=== PATIENT | female | born 1990 | race Two or more races ===

== ENCOUNTER 2024-09-25 14:31 | Emergency (ER) | payer MEDICAID, SELFPAY ==
[2024-09-25 14:33] VITALS: BMI 42.0
[2024-09-25 14:41] VITALS: BP 117/78; PULSE 91; RESP 18; TEMP 36.7; O2SAT 97; BMI 45.3
--- NOTE | 2024-09-25 14:54 | PD.EDADULT ---
ED General RME/HPI General Chief complaint: General Adult/Misc Complain Stated complaint: RAIZA INGROIN NAILS Time Seen by Provider: 09/25/24 14:34 Arrival date/time: 09/25/24 14:31 34-year-old female reports with complaints of toe pain from bilateral ingrown toenails. Patient admits to having a history of diabetes insulin-dependent but also states that she has not been evaluated by podiatry ever. She denies any swelling redness bruising or discharge from the toes. She states that is difficult to wear shoes because of the pain Limitations: no limitations Related Data Home Medications ?Medication ?Instructions ?Recorded ?Confirmed insulin glargine 100 unit/mL (3 30 unit subcut BID 07/05/23 11/09/23 mL) subcutaneous pen (Basaglar KwikPen U-100 Insulin) metformin 500 mg tablet 1,000 mg PO BID 07/05/23 11/09/23 liraglutide 0.6 mg/0.1 mL (18 mg/3 1.8 mg subcut QDAY 10/09/23 11/09/23 mL) subcutaneous pen injector (Victoza 3-Home) Previous Rx's ?Medication ?Instructions ?Recorded blood sugar diagnostic (Blood #25 ea 10/12/23 Glucose Test strips) blood-glucose meter #1 ea 10/12/23 blood-glucose sensor (FreeStyle #1 10/12/23 Yamini 3 Sensor device) insulin lispro 100 unit/mL 1 sliding scale dose subcut 10/12/23 subcutaneous pen (Admelog [place] USEASDIRECTD DM2 #15 mL U-100 Insulin lispro) lancets (Accu-Chek Softclix #100 ea 10/12/23 Lancets) pen needle, diabetic 29 gauge x #100 ea 10/12/23 1/2 (Pen Needle) blood-glucose meter,continuous #1 11/09/23 (FreeStyle Yamini 3 [place]) blood-glucose sensor (FreeStyle #1 11/09/23 Yamini 3 Sensor device) insulin glargine 100 unit/mL (3 30 unit (0.3 mL) subcut BID #15 mL 11/09/23 mL) subcutaneous pen (Basaglar KwikPen U-100 Insulin) Allergies Allergy/AdvReac Type Severity Reaction Status Date / Time No Known Allergies Allergy Verified 09/25/24 14:34 Review of Systems Constitutional Constitutional: Denies chills and Denies fever(s) Musculoskeletal Musculoskeletal: Reports arthralgias, Denies joint swelling, Denies numbness and Denies tingling Integumentary/Breasts Skin/Breast: Denies skin swelling, Denies unusual bruising and Reports other (ingrown nails) Neurologic Neurologic: Denies numbness and Denies tingling Past Medical History Past Medical History NEUROLOGIC: Negative Neurological Disorders or Seizures CARDIAC: Negative Cardiac Disorders, Angina, Aneurysm or Congestive Heart Failure RESPIRATORY: Negative Chronic Obstructive Pulmonary Disease (COPD) or Asthma GASTROINTESTINAL: Positive Gastrointestinal Disorders and Obesity; Negative Hepatitis or Colorectal Cancer GENITOURINARY: Negative Genitourinary Disorders, Renal Disease or Prostate Cancer REPRODUCTIVE: Positive Previous Pregnancies; Negative Breast Cancer, Endometriosis, Pelvic Inflammatory Disease, Testicular Cancer or Uterine Prolapse MUSCULOSKELETAL: Negative Musculoskeletal Disorders or Bone Cancer ENDOCRINE: Positive Endocrine Disorders and Diabetes Mellitus Type 2; Negative Diabetes Mellitus Type 1 HEMATOLOGIC: Negative Blood Disorders or Sickle Cell Disease OTHER HISTORY: Positive Chicken Pox; Negative Hospitalization, Autoimmune Disease, Down Syndrome, Developmental Delay, Shingles, Falls, Blood Transfusions, Blood Transfusion Reaction, Anesthesia Reactions, Organ Transplant, Chemotherapy, Radiation Therapy, Hyperbaric Therapy, MRSA, VRSA, Vancomycin-Resistant Enterococci, Human Immunodeficiency Virus (HIV), Measles, Mumps, Rubella (Pakistani Measles), Pertussis, Clostridium Difficile, Cancer, Breast Cancer, Cervical Cancer, Colorectal Cancer, Lung Cancer, Ovarian Cancer, Prostate Cancer or Testicular Cancer Family History FAMILY HISTORY: Negative Family Psychiatric Problems, Family Respiratory Disorders, Family Cardiac Disorders, Family Gastrointestinal Problems, Family Cancer, Family Surgery or Family Anesthesia Reaction Surgical History SURGICAL: Positive Section; Negative Cardiac Surgery, Endocrine Surgery, Thyroidectomy, Ear Surgery, Abdominal Surgery, Nephrectomy, Joint Replacement, Neurologic Surgery, Mastectomy, Vasectomy or Organ Transplant Social History SMOKING STATUS: Never smoker SECOND HAND EXPOSURE: No SUBSTANCE USE: does not use ED Exam General Limitations: Present no limitations General appearance: Present alert and in no apparent distress Expanded Lower Extremity Exam Foot/toe exam: Present other (bilateral nails with mild over growth of nails bilateral great toe, no d/c redness, or swelling, noted, FROM, cap refill < 2 sec, remainder of foot unremarkable); Absent tenderness or swelling Neurological Exam Neurological exam: Present alert, oriented X3 and CN II-XII intact Psychiatric Psychiatric exam: Present normal affect and normal mood Skin Skin exam: Present warm, dry, intact and normal color Course Quality Measures none Vital Signs Vital signs: Vital Signs Temperature 98.0 F 09/25/24 14:41 Pulse Rate 91 09/25/24 14:41 Respiratory Rate 18 09/25/24 14:41 Blood Pressure 117/78 09/25/24 14:41 Pulse Oximetry (%) 97 09/25/24 14:41 Oxygen Delivery Method Room Air 09/25/24 14:41 MDM Patient data External records reviewed:: None Clinical information provided by:: patient Social determinants that could affect healthcare access:: none Patient has the following chronic illnesses:: DM How is presenting disease/condition affected by chronic disease/condition?: exacerbated by Evaluation data The following diagnostics were reviewed and interpreted by me:: other (specify) (none) Lab and/or radiology exams considered but not ordered:: none Interpretation Summary: n/a Medications Medications considered but not ordered:: none Medication administrations:: none Consultations Consultation(s) initiated? (list below): No Diagnosis Differential Diagnosis ED Complaint MDM: Bilateral toe contusion versus ingrown toenail Most likely diagnosis given after review of the tests above:: Bilateral ingrown toenails great toe Admission Indicated Admission indicated?: not indicated Explain why admission is indicated or not indicated:: Mild condition Admission Request Was there a request for admission?: No Disposition Plan Disposition Plan: Discharge Discharge Attestation Discharge Attestation: The patient and all family members were given an opportunity to ask questions and understood the discharge instructions. Discharge instructions specifically effects, indications for sooner follow up or return to the emergency department, and the expected course of current diagnosis. Patient condition: Stable Medical Decision Making Differential Diagnosis Differential Diagnosis: Bilateral toe contusion versus ingrown toenail Discharge Plan Plan Patient Disposition: HOME (Self Care) Prescriptions/Referrals Prescriptions/Med Rec: No Action insulin glargine [Basaglar KwikPen U-100 Insulin] 100 unit/mL (3 mL) insulin pen 30 unit subcut BID Qty: 15 2RF (DME) FreeStyle Yamini 3 [place] Misc See Rx Instructions .Route Qty: 1 2RF Rx Instructions: As directed (DME) FreeStyle Yamini 3 Sensor Device See Rx Instructions .Route Qty: 1 0RF Rx Instructions: As directed insulin glargine [Basaglar KwikPen U-100 Insulin] 100 unit/mL (3 mL) insulin pen 30 unit SUBCUT BID Patient Comments: inject 30 units subcutaneously twice a day 30 DAYS metformin 500 mg tablet 1,000 mg PO BID Rx Instructions: pt states has only been taking once a day but is suppose to do it twice Victoza 3-Home 0.6 mg/0.1 mL (18 mg/3 mL) pen injector 1.8 mg SUBCUT QDAY Patient Comments: inject 0.6 milligram subcutaneously daily for 7 days then 1.2 milligram subcutaneously once daily insulin lispro [Admelog SoloStar U-100 Insulin] 100 unit/mL insulin pen 1 sliding scale dose subcut USEASDIRECTD Qty: 15 0RF (DME) blood-glucose meter Kit See Rx Instructions .Route Qty: 1 0RF Rx Instructions: As directed (DME) Blood Glucose Test Strip See Rx Instructions .Route Qty: 25 0RF Rx Instructions: As directed (DME) lancets [Accu-Chek Softclix Lancets] Misc See Rx Instructions .Route Qty: 100 0RF Rx Instructions: As directed (DME) FreeStyle Yamini 3 Sensor Device See Rx Instructions .Route Qty: 1 0RF Rx Instructions: As directed (DME) pen needle, diabetic [Pen Needle] 29 gauge x 1/2 needle See Rx Instructions .Route Qty: 100 0RF Rx Instructions: As directed Referrals: Billy Tsai DPM [Physician] - In 1 week Problem List Clinical Impression: Ingrown nail of great toe of left foot, Ingrown nail of great toe of right foot Patient/Caregiver Discharge Instructions Discharge Activity: activity as tolerated Education Materials: Understanding Ingrown Toenails, ED Ingrown Toenail Not ... Additional Instructions: You should follow with your primary care provider for referral to podiatry do not attempt to cut the ingrown nails yourself keep the areas clean and dry Print Language: Kinyarwanda Stand Alone Forms: Leslie Award Info., Patient Portal Info Letter
== END 2024-09-25 15:35 | disposition home or self-care (01) ==
PROVIDERS: Emergency Provider Emergency Medicine; PCP Family Medicine
DX: L60.0 Ingrowing nail (principal); E11.9 Type 2 diabetes mellitus without complications
CPT/HCPCS: 99281

== ENCOUNTER 2025-02-19 07:35 | Emergency (ER) | payer MEDICAID, SELFPAY ==
[2025-02-19 07:43] VITALS: BP 146/82; PULSE 83; RESP 18; TEMP 36.9; O2SAT 99; BMI 49.1
--- NOTE | 2025-02-19 07:48 | EDNOTE_ITS ---
<Statement entered by Alesia Moses MD - 02/19/25 17:34> As co-signing physician, I was present and available for consult prn. I concur with the plan and care as documented by the midlevel provider. Nausea/Vomit./Diarrhea-RME/HPI General Chief complaint: Nausea/Vomiting/Diarrhea Stated complaint: N/V, + PREG Time Seen by Provider: 02/19/25 07:38 Source: patient Arrival date/time: 02/19/25 07:35 35-year-old female with a history of type 2 diabetes presents to the emergency room with a chief complaint of nausea and vomiting x 3 days. Patient states she is currently and her last menstrual period was 3 months ago Mode of arrival: ambulatory Limitations: no limitations Related Data Home Medications ?Medication ?Instructions ?Recorded ?Confirmed insulin glargine 100 unit/mL (3 30 unit subcut BID 06/1711/09/23 mL) subcutaneous pen (Basaglar KwikPen U-100 Insulin) metformin 500 mg tablet 1,000 mg PO BID 07/05/23 liraglutide 0.6 mg/0.1 mL (18 mg/3 1.8 mg subcut QDAY 10/09/23 11/09/23 mL) subcutaneous pen injector (Victoza 3-Home) Previous Rx's ?Medication ?Instructions ?Recorded blood sugar diagnostic (Blood #25 ea 10/12/23 Glucose Test strips) blood-glucose meter #1 ea 10/12/23 blood-glucose sensor (FreeStyle #1 ea 10/12/23 Yamini 3 Sensor device) insulin lispro 100 unit/mL 1 sliding scale dose subcut 10/12/23 subcutaneous pen (Admelog SoloStar USEASDIRECTD DM2 #1 5 mL U-100 Insulin lispro) lancets (Accu-Chek Softclix #100 ea 10/12/23 Lancets) pen needle, diabetic 29 gauge x #100 10/12/23 1/2 (Pen Needle) blood-glucose sensor (FreeStyle #1 ea 11/09/23 Yamini 3 Sensor device) blood-glucose,school speech therapist,cont #1 ea 11/09/23 (FreeStyle Yamini 3 [place]) insulin glargine 100 unit/mL (3 30 unit (0.3 mL) subcu t BID #15 mL 11/09/23 mL) subcutaneous pen (Basaglar KwikPen U-100 Insulin) ondansetron 4 mg disintegrating 4 mg PO Q8H PRN nausea and 02/19/25 tablet vomiting #14 tabs Allergies Allergy/AdvReac Type Severity Reaction Status Date / Time No Known Allergies Allergy Verified 09/25/24 14:34 Review of Systems Review of Systems Systems Reviewed: All systems reviewed, normal except as documented Constitutional Constitutional: Reports system reviewed and no additional complaints, except as documented, Denies fatigue, Denies fever(s), Denies headache(s) and Denies weakness Eyes Eyes: Reports system reviewed and no additional complaints, except as documented, Denies blurry vision and Denies change in vision ENT Ears, Nose, Mouth, and Throat: Reports system reviewed and no additional complaints, except as documented, Denies otalgia, Denies headache(s), Denies nasal congestion, Denies throat swelling and Denies vertigo Cardiovascular Cardiovascular: Reports system reviewed and no additional complaints, except as documented, Denies chest pain, Denies dyspnea and Denies dyspnea on exertion Respiratory Respiratory: Reports system reviewed and no additional complaints, except as documented, Denies chest congestion, Denies cough, Denies dyspnea, Denies dyspnea on exertion and Denies wheezing Gastrointestinal Gastrointestinal: Reports system reviewed and no additional complaints, except as documented, Denies abdominal pain, Denies cramping, Reports nausea and Reports vomiting Genitourinary Genitourinary: Reports system reviewed and no additional complaints, except as documented Musculoskeletal Musculoskeletal: Reports system reviewed and no additional complaints, except as documented and Denies back pain Integumentary/Breasts Skin/Breast: Reports system reviewed and no additional complaints, except as documented and Denies wounds Neurologic Neurologic: Reports system reviewed and no additional complaints, except as documented, Denies confusion, Denies headache(s), Denies lack of coordination, Denies vertigo and Denies weakness Psychiatric Psychiatric: Reports system reviewed and no additional complaints, except as documented, Denies anxiety, Denies confusion, Denies depression, Denies paranoia, Denies suicidal ideation and Denies tactile hallucinations Endocrine Endocrine: Reports system reviewed and no additional complaints, except as documented and Denies fatigue Hematologic/Lymphatic Hematologic/Lymphatic: Reports system reviewed and no additional complaints, except as documented and Denies lymphadenopathy Allergic/Immunologic Allergic/Immunologic: Reports system reviewed and no additional complaints, except as documented, Denies throat swelling, Denies urticaria and Denies wheezing ED Exam General Limitations: Present no limitations General appearance: Present alert and in no apparent distress Head Head exam: Present atraumatic Eye Eye exam: Present normal appearance, PERRL and EOMI ENT ENT exam: Present normal exam, normal oropharynx and mucous membranes moist Neck Neck exam: Present normal inspection, full ROM and trachea midline Chest Chest inspection: Present normal inspection and symmetric chest wall rise Respiratory Respiratory exam: Present normal lung sounds bilaterally Cardiovascular Cardiovascular exam: Present regular rate, normal rhythm and normal heart sounds Abdominal Exam Abdominal exam: Present soft and normal bowel sounds; Absent distention, tenderness, guarding, rebound or rigidity Extremities Exam Extremities exam: Present normal inspection and full ROM Back Exam Back exam: Present normal inspection and full ROM Neurological Exam Neurological exam: Present alert, oriented X3 and CN II-XII intact Psychiatric Psychiatric exam: Present normal affect and normal mood Skin Skin exam: Present warm, dry, intact and normal color Course Quality Measures none Orders Category Date Time Status Ondansetron Odt [Zofran Odt] Med 02/19/25 07:46 Once 4 mg PO X1 ONE Vital Signs Vital signs: Vital Signs Temperature 98.5 F 02/19/25 07:43 Pulse Rate 83 02/19/25 07:43 Respiratory Rate 18 02/19/25 07:43 Blood Pressure 146/82 H 02/19/25 07:43 Pulse Oximetry (%) 99 02/19/25 07:43 Oxygen Delivery Method Room Air 02/19/25 07:43 Nausea/Vomiting/Diarrhea MDM Narrative MDM Narrative:: 35-year-old female with a history of type 2 diabetes presents to the emergency room with a chief complaint of nausea and vomiting x 3 days. Patient states she is currently and her last menstrual period was 3 months ago Patient is hemodynamically stable and in no apparent distress Physical examination shows a soft nontender abdomen. The patient denies any abdominal pain or pelvic pain. Patient denies any vaginal bleeding dysuria or any other symptoms besides nausea and vomiting. Patient has an appointment with her CORONER FORENSIC TECHNICIAN next week. Patient was discharged and educated to follow-up with primary care provider in the next 24 to 48 hours and return to the emergency room for any evidence of worsening signs or symptoms Patient data External records reviewed:: [facility] previous records Clinical information provided by:: patient Social determinants that could affect healthcare access:: none Patient has the following chronic illnesses:: Type 2 diabetes How is presenting disease/condition affected by chronic disease/condition?: exacerbated by Evaluation data The following diagnostics were reviewed and interpreted by me:: lab results and radiology exam(s) Lab and/or radiology exams considered but not ordered:: Labs and radiology exams considered in order Interpretation Summary: N/A Medications / Prescriptions Medications / Prescriptions considered but not ordered:: Medication given Medication administrations:: Medication Administration History Ondansetron HCl (Ondansetron Odt 4 Mg Tabrap) 4 mg PO X1 ONE; Protocol Stop: 02/19/25 07:47 Medication given Consultations Consultation(s) initiated? (list below): No Diagnosis Nausea Differential Diagnosis: gastroenteritis, dehydration and other (Nausea vomiting) Most likely diagnosis given after review of the tests above:: Nausea vomiting Admission Indicated Admission indicated?: not indicated Admission Request Was there a request for admission?: No Disposition Plan Disposition Plan: Discharge Discharge Attestation Discharge Attestation: The patient and all family members were given an opportunity to ask questions and understood the discharge instructions. Discharge instructions specifically effects, indications for sooner follow up or return to the emergency department, and the expected course of current diagnosis. Patient condition: Stable Discharge Plan Plan Patient Disposition: HOME (Self Care) Discharge Disposition comment: Stable Prescriptions/Referrals Prescriptions/Med Rec: New ondansetron 4 mg tablet,disintegrating 4 mg PO Q8H PRN (Reason: nausea and vomiting) Qty: 14 0RF No Action insulin glargine [Basaglar KwikPen U-100 Insulin] 100 unit/mL (3 mL) insulin pen 30 unit subcut BID Qty: 15 2RF (DME) FreeStyle Yamini 3 [place] Misc See Rx Instructions .Route Qty: 1 2RF Rx Instructions: As directed (DME) FreeStyle Yamini 3 Sensor Device See Rx Instructions .Route Qty: 1 0RF Rx Instructions: As directed insulin glargine [Basaglar KwikPen U-100 Insulin] 100 unit/mL (3 mL) insulin pen 30 unit SUBCUT BID Patient Comments: inject 30 units subcutaneously twice a day 30 DAYS metformin 500 mg tablet 1,000 mg PO BID Rx Instructions: pt states has only been taking once a day but is suppose to do it twice Victoza 3-Home 0.6 mg/0.1 mL (18 mg/3 mL) pen injector 1.8 mg SUBCUT QDAY Patient Comments: inject 0.6 milligram subcutaneously daily for 7 days then 1.2 milligram subcutaneously once daily insulin lispro [Admelog SoloStar U-100 Insulin] 100 unit/mL insulin pen 1 sliding scale dose subcut USEASDIRECTD Qty: 15 0RF (DME) blood-glucose meter Kit See Rx Instructions .Route Qty: 1 0RF Rx Instructions: As directed (DME) Blood Glucose Test Strip See Rx Instructions .Route Qty: 25 0RF Rx Instructions: As directed (DME) lancets [Accu-Chek Softclix Lancets] Misc See Rx Instructions .Route Qty: 100 0RF Rx Instructions: As directed (DME) FreeStyle Yamini 3 Sensor Device See Rx Instructions .Route Qty: 1 0RF Rx Instructions: As directed (DME) pen needle, diabetic [Pen Needle] 29 gauge x 1/2 needle See Rx Instructions .Route Qty: 100 0RF Rx Instructions: As directed Problem List Clinical Impression: Vomiting affecting Patient/Caregiver Discharge Instructions Education Materials: ED Vomiting (Adult) Additional Instructions: Please follow-up with your CORONER FORENSIC TECHNICIAN in the next 24 to 48 hours Medication was given to help you with your symptoms. Please pick it up and take it as indicated For any evidence of worsening signs or symptoms return to the emergency room immediately Print Language: Divehi Stand Alone Forms: Leslie Award Info., Patient Portal Info Letter PA/ASSISTANT INFANT TEACHER Supervising Physician PA/ASSISTANT INFANT TEACHER Supervising Physician: Dr. Kitchen
[2025-02-19] MEDS: ONDANSETRON ODT 4 MG TABRAP PO (07:56)
== END 2025-02-19 08:01 | disposition home or self-care (01) ==
PROVIDERS: Emergency Provider Emergency Medicine; PCP Family Medicine
DX: O21.9 Vomiting of pregnancy, unspecified (principal)
CPT/HCPCS: 99282; Q0162

== ENCOUNTER 2025-03-05 08:21 | Outpatient (AMB) | payer MEDICAID, SELFPAY ==
[2025-03-05 08:36] VITALS: BP 106/71; PULSE 74; RESP 17; TEMP 36.6; O2SAT 97; BMI 48.6
--- NOTE | 2025-03-05 08:36 | OBCLNT_ITS ---
Vital Signs 03/05/25 08:36 Height 1.6 m Height Method Stated Weight 124.738 kg Weight Measurement Method Standing Scale BMI 48.6 BP 106/71 Blood Pressure Source Automatic Cuff Blood Pressure Location Right Upper Arm Position Sitting Respiration 17 Pulse 74 Pulse Source Monitor Temp 97.9 F Temp Source Temporal Artery Scan Pulse Oximetry (%) 97 Oxygen Delivery Method Room Air Allergies/Home Meds Allergies & Medications Allergies No Known Allergies Allergy (Verified 03/05/25 08:37) Medication Reconciliation insulin glargine 100 unit/mL (3 mL) subcutaneous pen (Basaglar KwikPen U-100 Insulin) 30 unit subcut BID 07/05/23 [History Confirmed 03/05/25] metformin 500 mg tablet 1,000 mg PO BID 07/05/23 [History Confirmed 03/05/25] liraglutide 0.6 mg/0.1 mL (18 mg/3 mL) subcutaneous pen injector (Victoza 3-Home) 1.8 mg subcut QDAY 10/09/23 [History Confirmed 03/05/25] blood-glucose sensor (FreeStyle Yamini 3 Sensor device) #1 ea 10/12/23 [Rx Confirmed 03/05/25] insulin lispro 100 unit/mL subcutaneous pen (Admelog SoloStar U-100 Insulin lispro) 1 sliding scale dose subcut USEASDIRECTD DM2 #15 mL 10/12/23 [Rx Confirmed 03/05/25] pen needle, diabetic 29 gauge x 1/2 (Pen Needle) #100 ea 10/12/23 [Rx Confirmed 03/05/25] blood-glucose sensor (FreeStyle Yamini 3 Sensor device) #1 ea 11/09/23 [Rx Confirmed 03/05/25] blood-glucose,network project manager,cont (FreeStyle Yamini 3 [place]) #1 ea 11/09/23 [Rx Confirmed 03/05/25] insulin glargine 100 unit/mL (3 mL) subcutaneous pen (Basaglar KwikPen U-100 Insulin) 30 unit (0.3 mL) subcut BID #15 mL 11/09/23 [Rx Confirmed 03/05/25] blood sugar diagnostic (Blood Glucose Test strips) #100 ea 03/05/25 [Rx] blood-glucose meter #1 ea 03/05/25 [Rx] lancets 21 gauge #100 ea 03/05/25 [Rx] ondansetron 4 mg disintegrating tablet 4 mg PO Q6H PRN nausea and vomiting 30 days #120 tabs 03/22/25 [Rx] Intake Visit Data Collection New Patient or Established: Established Patient (seen at [facility] within 3 years) Reason for Visit:: OBI Seen by Clinical Staff ONLY (RN/MA): No Health Advisor Required: No Do You Feel Safe at Home: Yes Authorities Contacted: N/A PCP or OBGYN visit in last 3 months: Yes Date of Last PCP or OBGYN visit: 02/19/25 Hx Now: Yes Are you currently on any form of Control: No Pain Present Currently: No Pain scale:: 0 Smoking Status Smoking Status: Never smoker Questionnaires Covid-19 Vaccine Questionnaire Has patient been vacinated for Covid-19 Have you been vacinated for Covid-19: Yes PHQ-9 PHQ-2 Over the last 2 weeks, how often have you been bothered by any of the following problems? 1. Little interest or pleasure in doing things: not at all 2. Feeling down, depressed, or hopeless: not at all Total score: 0 PHQ-9 3. Trouble falling or staying asleep, or sleeping too much: Not at all 4. Feeling tired or having little energy: Not at all 5. Poor appetite or overeating: Not at all 6. Feeling bad about yourself - or that you are a failure or have let yourself or your family down: Not at all 7. Trouble concentrating on things, such as reading the newspaper or watching television: Not at all 8. Moving or speaking so slowly that other people could have noticed? - Or the opposite - being so fidgety or restless that you have been moving around a lot more than usual: not at all 9. Thoughts that you would be better off or of hurting yourself in some way: Not at all Total score: 0 If you checked off any problems, how difficult have these problems made it for you to do your work, take care of things at home, or get along with other people?: not difficult at all Source: Developed by Drs. Matthew Walker, Brielle Menezes, Kevan Gardner and colleagues, with an educational arturo from [email or web address]. Depression screen completed yes Social History Living Situation History Marital Status: Life Partner Lives With: Family Housing: Apartment Housing Other:: Pt is alert/oriented Tobacco History Smoking Status: Never smoker Second Hand Smoke Exposure: No Alcohol History Alcohol Intake: Never Alcohol Intake Frequency: A Few Times a Month Domestic Abuse History Do You Feel Safe at Home: Yes History of Present Illness HPI Narrative Laurie Corbett is a 35-year-old [id number] presenting for her initial visit. She has a history of 2 previous deliveries in 2013 and 2019, type 2 diabetes mellitus, and psoriasis. She reported a last menstrual period of October 12, 2024, but is unsure of the exact date. She is beginning to feel some movements. Her diabetes is currently under control, with her last A1c being around 8. She is taking 40 units of Humalog insulin for her diabetes management. However, she does not have a glucose meter at home for regular blood sugar monitoring. The patient's current is progressing without any reported complications or concerns. She has not mentioned any specific symptoms or discomfort related to her or pre-existing conditions. Medical History: - Type 2 diabetes mellitus - Psoriasis Surgical History: - delivery in 2019 - delivery in 2013 Obstetric History: - GPAL: G3 T2 L2 - First : delivery in 2013 - Second : delivery in 2019 Medications: - Insulin (Humalog) 40 units DIVISION SERGEANT: Past Medical History Past Medical History: No Hx Neurological Disorders, No Hx Breast Cancer, No Hx Cardiac Disorders, No Hx Cancer, No Hx Blood Disorders, Yes Hx Gastrointestinal Disorders, No Hx Renal Disease, No Hx Diabetes Mellitus Type 1 and Yes Hx Diabetes Mellitus Type 2 OB Initial Visit OB Flowsheet OB Flowsheet Initial Weight: Not Recorded Date -?-?-?-?-?-?-?-?-?-?-?-?- EGA Weight BP Alb Glu CTX Pres Fundal ht FHR Mov Dilation Station Effacement Hx Notes Visit Note 03/05/25 -?-?-?-?-?-?-?-?-?-?-?-?- 23w 2d 124.738 kg 106/71 absent unknown 24 - Schedule formal ultrasound - Order labs - Review ultrasound and lab results once available to determine further management - Continue Humalog 40 units - Provide glucose meter - Instruct patient to check blood sugar four times daily: fasting and 1 hour after each meal - Review blood sugar readings at next vi sit before making any insulin dosage adjustments Menstrual History Menstrual reliability: definite Flow: normal Menstrual regularity: regular Monthly: Yes Age at menarche: 15 On control pills at conception: No OB History : 3 Para: 2 # of Living Children: 2 Delivery History 1st : Child's name: CLIFFORD MCCARTY date: 12/25/13 sex: female Gestational age at delivery (weeks): 40 Delivery type: weight (lbs): 3175.147 g History of depression before or after : No 2nd : Child's name: CHANDLER MCCARTY date: 01/31/20 sex: male Gestational age at delivery (weeks): 36 Delivery type: weight (lbs): 4535.924 g History of depression before or after : No Infection History & Risk Evaluation History of STDs: HIV Patient or partner has history of Genital Herpes: Yes Varicella/chicken pox status: unknown Genetic Screening & History Genetic Screening/Teratology Counseling - Includes patient, baby's father, or anyone in either family with: 1. Patient's age 35 years or older as of estimated date of delivery: No 2. Thalassemia ([place], Japanese, Mediterranean, or Background); MCV less than 80: No 3. Neural Tube Defect (Meningomyelocele, Spina Bifida, or Anencephaly): No 4. Congenital Heart Defect: No 5. Down Syndrome: No 6. Diego-Sachs (Ashkenazi Roman Catholic, Cajun, [place]): No 7. Gabino Disease (Ashkenazi Roman Catholic): No 8. Familial Dysautonomia (Ashkenazi Roman Catholic): No 9. Sickle Cell Disease or Trait (): No 10. Hemophilia or other blood disorders: No 11. Muscular Dystrophy: No 12. Cystic Fibrosis: No 13. [place]'s Chorea: No 14. Mental Retardation/Autism: Yes 15. Other inherited genetic or chromosomal disorder: No 16. Maternal Metabolic Disorder (EG,TYPE 1 Diabetes, PKU): No 17. Patient or baby's father had a child with defects not listed above: No 18. Recurrent loss or a stillbirth: No 19. Medications (including supplements, vitamins, herbs or otc drugs)/illicit/ recreational drugs/alcohol since last menstrual period: No 20. Any other: No Infection History 1. Live with someone with TB or exposed to TB: No 2. Rash or viral illness since last menstrual period: No 3. Hepatitis B,C: No 4. History of STD: HIV Other (see comments) Source: [employer] Exam General Limitations: no limitations General Appearance: alert, in no apparent distress and comfortable Head Head exam: atraumatic and normocephalic Eye Eye exam: Present normal appearance, PERRL and EOMI Neck Neck exam: Present normal inspection and full ROM Chest Chest inspection: Present normal inspection and symmetric chest wall rise; Absent tenderness Resp Respiratory exam: Present normal lung sounds bilaterally; Absent respiratory distress Card Cardiovascular exam: Present regular rate and normal rhythm Abdominal Abdominal exam: Present soft and normal bowel sounds; Absent tenderness, guarding, rebound or rigidity Neuro Neurological exam: Present alert and oriented X3 Psych Psychiatric exam: Present normal affect Office Procedures OB Clinic LOC & Office Proc's Nursing/Assessment Patient Status: Established Patient OB Clinic Nursing Assessment: Medication Reconciliation, Update PMH in EMR and Vital Signs OB Clinic Coordination of Care: Complex Care and Chronic Disease 1-5, Consent,records obtained, informed consent, Education Simp Pt/Fam and Staff clarify orders Special Needs: Heart tones Established Patient Charge Established Patient Point Assignment: 115 Established Patient Point Charge: EP Level 3 (80-115) Assessment & Plan Diagnosis / Problem List (1) Morbid obesity with BMI of 45.0-49.9, adult: Status: Acute (2) Supervision of high risk , unspecified, first trimester: Status: Acute Plan Assessment: Patient reports last menstrual period on October 12, 2024, but is unsure of exact date. She is beginning to feel movements. Given her history of 2 previous deliveries, this is considered high- risk. Plan: - Performed bedside ultrasound, unable to determine EGA due to body habitus - Schedule formal ultrasound - Order labs - Review ultrasound and lab results once available to determine further management Type 2 Diabetes Mellitus Assessment: Patient's diabetes is currently under control with last HbA1c around 8%. She is on insulin therapy, taking 40 units of Humalog. Patient does not have a glucose meter for home monitoring. Plan: - Continue Humalog 40 units - Provide glucose meter - Instruct patient to check blood sugar four times daily: fasting and 1 hour after each meal - Review blood sugar readings at next visit before making any insulin dosage adjustments Psoriasis Assessment: Patient has a history of psoriasis. Plan: - Continue current management
== END 2025-03-05 09:06 | disposition home or self-care (01) ==
LOC: HODSOBC 08:21
PROVIDERS: PCP Family Medicine; Referring Provider Family Medicine; Supervising Provider Obstetrics & Gynecology; Visit Provider Obstetrics & Gynecology
DX: O09.892 Supervision of other high risk pregnancies, second trimester (principal); O99.212 Obesity complicating pregnancy, second trimester; E66.01 Morbid (severe) obesity due to excess calories; O24.112 Pre-existing type 2 diabetes mellitus, in pregnancy, second trimester; O34.219 Maternal care for unspecified type scar from previous cesarean delivery; Z3A.23 23 weeks gestation of pregnancy; L40.9 Psoriasis, unspecified; O09.292 Supervision of pregnancy with other poor reproductive or obstetric history, second trimester; O99.712 Diseases of the skin and subcutaneous tissue complicating pregnancy, second trimester; Z79.4 Long term (current) use of insulin; Z79.84 Long term (current) use of oral hypoglycemic drugs; Z79.85 Long-term (current) use of injectable non-insulin antidiabetic drugs
CPT/HCPCS: 99213; G0463

== ENCOUNTER → 2025-03-07 | Outpatient (CLI) | payer MEDICAID, SELFPAY ==
--- NOTE | 2025-03-07 13:37 | XR_ITS ---
Examination: Complete OB ultrasound, less than 14 weeks, transabdominal Date and time of exam: March 07, 2025 1345 hours INDICATIONS: Nausea beginning 2 weeks ago Technique: Obstetrical ultrasound images less than 14 weeks performed via transabdominal imaging Findings: A normal shaped single intrauterine gestation is present in the uterus. CRL 0.9 cm corresponds to 6 week 6 day gestational age Cardiac motion 144 BPM Ultrasonographic survey of visible and placental structures unremarkable. Amniotic fluid volume appears appropriate for this estimated gestational age. Ovaries obscured by bowel gas IMPRESSION: Viable intrauterine gestation 6 weeks 6 days.
== END | disposition home or self-care (01) ==
LOC: CDIM 13:26
PROVIDERS: Referring Provider Obstetrics & Gynecology; Visit Provider Obstetrics & Gynecology
DX: O36.80X0 Pregnancy with inconclusive fetal viability, not applicable or unspecified (principal); Z3A.01 Less than 8 weeks gestation of pregnancy
CPT/HCPCS: 76801

== ENCOUNTER 2025-03-24 16:56 | Emergency (ER) | payer MEDICAID, SELFPAY ==
[2025-03-24 16:57] VITALS: BMI 43.9
[2025-03-24 17:30] VITALS: BP 135/82; PULSE 90; RESP 16; TEMP 36.8; O2SAT 96
--- NOTE | 2025-03-24 17:59 | EDNOTE_ITS ---
Upper Respiratory Inf. RME/HPI General Chief Complaint: Flu Like Symptoms Stated Complaint: FLU LIKE SYMPTOMS Time Seen by Provider: 03/24/25 17:25 Arrival date/time: 03/24/25 16:56 This is a 35-year-old female that comes into the emergency room with complaints of sore throat, cough and runny nose for a few days now. Per patient her and her son have the same symptoms. Mother states that she is she does not know how far along she is but just had an ultrasound and was told that it was very early . Patient not complaining of any abdominal pain any vaginal discharge or it vaginal bleeding. Mother reports no past medical history. Related Data Home Medications ?Medication ?Instructions ?Recorded ?Confirmed insulin glargine 100 unit/mL (3 30 unit subcut BID 06/1703/05/25 mL) subcutaneous pen (Basaglar KwikPen U-100 Insulin) metformin 500 mg tablet 1,000 mg PO BID 07/05/2306/19 liraglutide 0.6 mg/0.1 mL (18 mg/3 1.8 mg subcut QDAY 10/09/23 03/05/25 mL) subcutaneous pen injector (Victoza 3-Home) Previous Rx's ?Medication ?Instructions ?Recorded blood-glucose sensor (FreeStyle #1 ea 10/12/23 Yamini 3 Sensor device) insulin lispro 100 unit/mL 1 sliding scale dose subcut 10/12/23 subcutaneous pen (Admelog [place] USEASDIRECTD DM2 #1 5 mL U-100 Insulin lispro) pen needle, diabetic 29 gauge x #100 ea 10/12/23 1/2 (Pen Needle) blood-glucose sensor (FreeStyle #1 ea 11/09/23 Yamini 3 Sensor device) blood-glucose,compliance review officer,cont #1 ea 11/09/23 (FreeStyle Yamini 3 [place]) insulin glargine 100 unit/mL (3 30 unit (0.3 mL) subcu t BID #15 mL 11/09/23 mL) subcutaneous pen (Basaglar KwikPen U-100 Insulin) blood sugar diagnostic (Blood #100 ea 03/05/25 Glucose Test strips) blood-glucose meter #1 ea 03/05/25 lancets 21 gauge #100 ea 03/05/25 ondansetron 4 mg disintegrating 4 mg PO Q6H PRN nausea and 03/22/25 tablet vomiting 30 days #120 tabs Allergies Allergy/AdvReac Type Severity Reaction Status Date / Time No Known Allergies Allergy Verified 03/05/25 08:37 Review of Systems Review of Systems Systems Reviewed: All systems reviewed, normal except as documented Past Medical History Past Medical History NEUROLOGIC: Negative Neurological Disorders or Seizures CARDIAC: Negative Cardiac Disorders, Angina, Aneurysm or Congestive Heart Failure RESPIRATORY: Negative Chronic Obstructive Pulmonary Disease (COPD) or Asthma GASTROINTESTINAL: Positive Gastrointestinal Disorders and Obesity; Negative Hepatitis or Colorectal Cancer GENITOURINARY: Negative Genitourinary Disorders, Renal Disease or Prostate Canc er REPRODUCTIVE: Positive Previous Pregnancies; Negative Breast Cancer, Endometriosis, Pelvic Inflammatory Disease, Testicular Cancer or Uterine Prolapse MUSCULOSKELETAL: Negative Musculoskeletal Disorders or Bone Cancer ENDOCRINE: Positive Endocrine Disorders and Diabetes Mellitus Type 2; Negative Diabetes Mellitus Type 1 HEMATOLOGIC: Negative Blood Disorders or Sickle Cell Disease OTHER HISTORY: Positive Chicken Pox; Negative Hospitalization, Autoimmune Disease, Down Syndrome, Developmental Delay, Shingles, Falls, Blood Transfusions, Blood Transfusion Reaction, Anesthesia Reactions, Organ Transplant, Chemotherapy, Radiation Therapy, Hyperbaric Therapy, MRSA, VRSA, Vancomycin-Resistant Enterococci, Human Immunodeficiency Virus (HIV), Measles, Mumps, Rubella ([place]i Measles), Pertussis, Clostridium Difficile, Cancer, Breast Cancer, Cervical Cancer, Colorectal Cancer, Lung Cancer, Ovarian Cancer, Prostate Cancer or Testicular Cancer Family History FAMILY HISTORY: Negative Family Psychiatric Problems, Family Respiratory Disorders, Family Cardiac Disorders, Family Gastrointestinal Problems, Family Cancer, Family Surgery or Family Anesthesia Reaction Surgical History SURGICAL: Positive Section; Negative Cardiac Surgery, Endocrine Surgery, Thyroidectomy, Ear Surgery, Abdominal Surgery, Nephrectomy, Joint Replacement, Neurologic Surgery, Mastectomy, Vasectomy or Organ Transplant Social History SMOKING STATUS: Never smoker SECOND HAND EXPOSURE: No SUBSTANCE USE: does not use ED Exam Narrative Physical exam: VITAL SIGNS: Reviewed. GENERAL APPEARANCE: Alert and interactive, follows commands, no acute distress, HEAD AND FACE: Non-traumatic. ENT: PERRL, conjuctiva pink and clear, eyelid no trauma, Mucous membrane moist. NECK: Supple, nontender, no nuchal rigidity. CHEST: No tenderness, no crepitus, no paradoxical movement, no retractions. LUNGS: Clear, well ventilated, symmetric, no rales, no wheezing, no rhonchi, no stridor, good breath sounds bilaterally. HEART: Regular rate, regular rhythm, no murmur, no gallops. ABDOMEN: Soft, nondistended, no guarding, nontender, no rebound, no masses, NEUROLOGICAL: Gross motor function intact sensory function intact, Appropriate for age. MUSCULOSKELETAL: low back nontender, full range of motion. EXTREMITIES: No redness no swelling no skin breakdown on bilateral foot and leg. Distal neurovascular status intact bilateral foot SKIN: Color pink, dry, no rash, no lacerations, no abrasions, no contusions. Course Quality Measures none Orders Category Date Time Status Bedside COVID-19 Antigen Test NOW Care 03/24/25 17:46 Completed Bedside Influenza A&B Antigen Test NOW Care 03/24/25 17:46 Completed Acetaminophen Tab [Tylenol ES Tab] Med 03/24/25 17:46 Discontinued 1,000 mg PO X1 ONE Vital Signs Vital signs: Vital Signs Temperature 98.3 F 03/24/25 17:30 Pulse Rate 90 03/24/25 17:30 Respiratory Rate 16 03/24/25 17:30 Blood Pressure 135/82 H 03/24/25 17:30 Pulse Oximetry (%) 96 03/24/25 17:30 Oxygen Delivery Method Room Air 03/24/25 17:30 Upper Respiratory Infection MDM Narrative MDM Narrative:: COVID and influenza negative. Patient given Tylenol for pain. I spoke to patient at length. Told patient to make plenty of fluids rest is likely a viral illness. Patient told to follow-up with primary provider in 1 to 2 days. Come back to the emergency room if symptoms change or worsen. Dragon dictation: Although this document has been carefully reviewed, there may still be some phonetic and other typographical errors. These errors are purely grammatical due to imperfections in the software program and should not be construed in any way to compromise the substance of the patient's medical care during this visit. Patient data External records reviewed:: [facility] previous records Clinical information provided by:: patient Social determinants that could affect healthcare access:: none Patient has the following chronic illnesses:: none How is presenting disease/condition affected by chronic disease/condition?: no chronic disease Evaluation data The following diagnostics were reviewed and interpreted by me:: lab results Lab and/or radiology exams considered but not ordered:: none Interpretation Summary: see note Medications / Prescriptions Medications or Prescriptions considered but not ordered:: none Medication administrations:: Medication Administration History Discontinued Medications Acetaminophen (Acetaminophen 500 Mg Tablet) 1,000 mg PO X1 ONE Stop: 03/24/25 17:47 Last Admin: 03/24/25 18:09 Dose: 1,000 mg Documented By: SARAH see cassia Consultations Consultation(s) initiated? (list below): No Diagnosis Upper Respiratory Differential Diagnosis: upper respiratory infection, otitis media, sinusitis, viral infection and influenza Most likely diagnosis given after review of the tests above:: uri Admission Indicated Admission indicated?: not indicated Admission Request Was there a request for admission?: No Disposition Plan Disposition Plan: Discharge Discharge Attestation Discharge Attestation: The patient and all family members were given an opportunity to ask questions and understood the discharge instructions. Discharge instructions specifically effects, indications for sooner follow up or return to the emergency department, and the expected course of current diagnosis. Patient condition: Stable Discharge Plan Plan Patient Disposition: HOME (Self Care) Patient condition on transfer: Stable Prescriptions/Referrals Prescriptions/Med Rec: No Action insulin glargine [Basaglar KwikPen U-100 Insulin] 100 unit/mL (3 mL) insulin pen 30 unit subcut BID Qty: 15 2RF (DME) FreeStyle Yamini 3 [place] Misc See Rx Instructions .Route Qty: 1 2RF Rx Instructions: As directed (DME) FreeStyle Yamini 3 Sensor Device See Rx Instructions .Route Qty: 1 0RF Rx Instructions: As directed (DME) blood-glucose meter Kit See Rx Instructions .MEDSUPPLY Qty: 1 0RF Rx Instructions: As directed, 4 times a day (DME) Blood Glucose Test Strip See Rx Instructions .MEDSUPPLY Qty: 100 0RF Rx Instructions: As directed, 4 times a day (DME) lancets 21 gauge misc See Rx Instructions .MEDSUPPLY Qty: 100 0RF Rx Instructions: As directed, 4 times a day ondansetron 4 mg tablet,disintegrating 4 mg PO Q6H PRN (Reason: nausea and vomiting) 30 Days Qty: 120 0RF insulin glargine [Basaglar KwikPen U-100 Insulin] 100 unit/mL (3 mL) insulin pen 30 unit SUBCUT BID Patient Comments: inject 30 units subcutaneously twice a day 30 DAYS metformin 500 mg tablet 1,000 mg PO BID Rx Instructions: pt states has only been taking once a day but is suppose to do it twice Victoza 3-Home 0.6 mg/0.1 mL (18 mg/3 mL) pen injector 1.8 mg SUBCUT QDAY Patient Comments: inject 0.6 milligram subcutaneously daily for 7 days then 1.2 milligram subcutaneously once daily insulin lispro [Admelog SoloStar U-100 Insulin] 100 unit/mL insulin pen 1 sliding scale dose subcut USEASDIRECTD Qty: 15 0RF (DME) FreeStyle Yamini 3 Sensor Device See Rx Instructions .Route Qty: 1 0RF Rx Instructions: As directed (DME) pen needle, diabetic [Pen Needle] 29 gauge x 1/2 needle See Rx Instructions .Route Qty: 100 0RF Rx Instructions: As directed Referrals: No Primary/Family,Physician [Primary Care Provider] - In 1 week Problem List Clinical Impression: Upper respiratory infection, viral Patient/Caregiver Discharge Instructions Discharge Activity: activity as tolerated Education Materials: ED URI, Viral, No Abx (Adult) Additional Instructions: Follow up with primary provider in 1-2 days. Come back to ED if symptoms change or worsen Print Language: Serbian Stand Alone Forms: Leslie Award Info., Patient Portal Info Letter PA/REVERBERATORY SKIMMER Supervising Physician PA/REVERBERATORY SKIMMER Supervising Physician: linda
[2025-03-24] MEDS: ACETAMINOPHEN 500 MG TABLET 1000 MG PO (18:09)
== END 2025-03-24 19:29 | disposition home or self-care (01) ==
PROVIDERS: Emergency Provider Emergency Medicine
DX: J06.9 Acute upper respiratory infection, unspecified (principal)
CPT/HCPCS: 87400; 87811; 99283; A9270

== ENCOUNTER 2025-04-06 08:32 | Outpatient (AMB) | payer MEDICAID, SELFPAY ==
[2025-04-06 08:42] VITALS: BP 107/67; PULSE 75; RESP 16; TEMP 36.5; O2SAT 97; BMI 49.9
--- NOTE | 2025-04-06 08:42 | OBCLNT_ITS ---
Vital Signs 04/06/25 08:42 Height 1.57 m Height Method Stated Weight 123.15 kg Weight Measurement Method Standing Scale BMI 49.9 BP 107/67 Blood Pressure Source Automatic Cuff Blood Pressure Location Left Upper Arm Position Sitting Respiration 16 Pulse 75 Pulse Source Monitor Temp 97.7 F Temp Source Oral Pulse Oximetry (%) 97 Oxygen Delivery Method Room Air Allergies/Home Meds Allergies & Medications Allergies No Known Allergies Allergy (Verified 04/18/25 08:32) Medication Reconciliation blood-glucose sensor (FreeStyle Yamini 3 Sensor device) #1 ea 10/12/23 [Rx Confirmed 04/18/25] pen needle, diabetic 29 gauge x 1/2 (Pen Needle) #100 ea 10/12/23 [Rx Confirmed 04/18/25] blood-glucose sensor (FreeStyle Yamini 3 Sensor device) #1 ea 11/09/23 [Rx Confirmed 04/18/25] blood-glucose,crew scheduler,cont (FreeStyle Yamini 3 [place]) #1 ea 11/09/23 [Rx Confirmed 04/18/25] blood sugar diagnostic (Blood Glucose Test strips) #100 ea 03/05/25 [Rx Confirmed 04/18/25] blood-glucose meter #1 ea 03/05/25 [Rx Confirmed 04/18/25] lancets 21 gauge #100 ea 03/05/25 [Rx Confirmed 04/18/25] insulin lispro 100 unit/mL subcutaneous pen (Humalog KwikPen (U-100) Insulin) 15 unit (0.15 mL) subcut TID 30 days #13.5 mL 04/06/25 [Rx Confirmed 04/18/25] pen needle, diabetic 29 gauge x 1/2 #100 ea 04/06/25 [Rx Confirmed 04/18/25] Intake Visit Data Collection New Patient or Established: Established Patient (seen at [facility] within 3 years) Reason for Visit:: CARE Seen by Clinical Staff ONLY (RN/MA): No Glue Maker Bone Required: No Do You Feel Safe at Home: Yes Authorities Contacted: N/A PCP or OBGYN visit in last 3 months: Yes Hx Now: Yes Are you currently on any form of Control: No Pain Present Currently: No Pain Scale Used: Roberto-Garrett/Numerical Pain scale:: 0 Smoking Status Smoking Status: Never smoker Questionnaires Covid-19 Vaccine Questionnaire Has patient been vacinated for Covid-19 Have you been vacinated for Covid-19: Yes PHQ-9 PHQ-2 Over the last 2 weeks, how often have you been bothered by any of the following problems? 1. Little interest or pleasure in doing things: not at all 2. Feeling down, depressed, or hopeless: not at all Total score: 0 PHQ-9 3. Trouble falling or staying asleep, or sleeping too much: Not at all 4. Feeling tired or having little energy: Not at all 5. Poor appetite or overeating: Not at all 6. Feeling bad about yourself - or that you are a failure or have let yourself or your family down: Not at all 7. Trouble concentrating on things, such as reading the newspaper or watching television: Not at all 8. Moving or speaking so slowly that other people could have noticed? - Or the opposite - being so fidgety or restless that you have been moving around a lot more than usual: not at all 9. Thoughts that you would be better off or of hurting yourself in some way: Not at all Total score: 0 Source: Developed by Drs. Matthew Walker, Brielle Menezes, Kevan Gardner and colleagues, with an educational arturo from [employer]. 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: Past Medical History Past Medical History: No Hx Neurological Disorders, No Hx Breast Cancer, No Hx Cardiac Disorders, No Hx Cancer, No Hx Blood Disorders, Yes Hx Gastrointestinal Disorders, No Hx Renal Disease, No Hx Diabetes Mellitus Type 1 and Yes Hx Diabetes Mellitus Type 2 Care OB Visit Log OB Flowsheet Initial Weight: Not Recorded Date -?-?-?-?-?-?-?-?-?-?-?-?- EGA Weight BP Alb Glu CTX Pres Fundal ht FHR Mov Dilation Station Effacement Hx Notes Visit Note 03/05/25 -?-?-?-?-?-?-?-?-?-?-?-?- 6w 4d 124.738 kg 106/71 absent unknown 24 - Schedule formal ultrasound - Order labs - Review ultrasound and lab results once available to determine further management - Continue Humalog 40 units - Provide glucose meter - Instruct patient to check blood sugar four times daily: fasting and 1 hour after each meal - Review blood sugar readings at next vi sit before making any insulin dosage adjustments 04/06/25 -?-?-?-?-?-?-?-?-?-?-?-?- 11w 1d 123.15 kg 107/67 absent unknown - Laurie Corbett is a 3, para 2 female at 27 weeks and 6 days gestation with a history of 2 C-sections, type 2 diabetes mellitus on insulin, and HIV-1 positive status here for routine care. - She was diagnosed with HIV in of last year with testing done in [place]. - She is currently on Trimac for HIV carlos atment. - Regarding her diabetes management, she takes 40 units of insulin but reports not taking it due to sickness. - She is currently taking Basaglar and Admelog in pen form. - She denies gonorrhea and chlamydia. Plan - HIV monitoring: New lab panel to monit or viral counts; if numbers are high, additional medications will be added and repeated at 37 weeks - Genetic testing today for Down Syndrom e and chromosomal abnormalities, including gender determination - NIPT test needed - Diabetes management: If needed, hospit al admission to control sugar levels; possible transfer to [place] for delivery in 3rd trimester due to diabetes requiring pediatric medical authorization specialist - Referral to Dr. Garcia, maternal-fet al high-risk specialist - Additional testing for HIV today - HIV panel code [id number], consent needed for HIV testing - Lab orders provided - Anatomy scan at 18 weeks - Follow-up in 2 weeks for lab results 04/18/25 -?-?-?-?-?-?-?-?-?-?-?-?- 12w 6d 122.243 kg 105/67 absent unknown 165 - Laurie Corbett is a 3 para 2 female at 12 weeks and 6 days gestation presenting for her second visit with poorly controlled type 2 diabetes mellitus and known HIV. - She reports improvement in her diabete s control since the start of . - Her hemoglobin A1c has decreased fro m 9.2 at the start of to 8.0 currently. - She is checking her blood sugars but r eports inconsistent monitoring. - Post-meal blood sugars have reached as high as 190 mg/dL, which she describes as typical for her current levels. - She continues her current diabetes man agement regimen including insulin. - Recent labs were drawn 2 days ago but results are still pending. - She is awaiting results to determine i f any adjustments to her HIV medications are needed. - First-trimeste r detailed ultrasound survey: - Clinical gestational age: 12 weeks 5 days, corresponding to due date of 10/25/2025 - [place]-rump length: 13 weeks 3 days ( consistent with established due date of 10/25/2025) - Early anatomy survey: within normal limits - Nuchal translucency and nasal bone: visualized - Placenta: anterior-right lateral pos ition - No sonographic evidence of placenta accreta spectrum CHEKO Calculator Estimated Delivery Date Method Current WG Current Estimate 10/25/25 Ultrasound #1 16w 2d Other Estimates 06/30/25 LMP (Uncertain) 33w 0d Notes Visit Date: 04/06/25 Last Updated by: Abraham Mauro MD Laboratory, Imaging, and Diagnostic Test Results - Ultrasound (March 07): Gestational age 11 weeks and 1 day - Initial screen ([facility]): - Hepatitis B surface antigen: Negative - Hepatitis C: Negative - RPR: Non-reactive - Rubella: Immune - Blood group: B positive - Antibody screen: Negative - HIV-1 antibody: Positive - Gonorrhea: Negative - Chlamydia: Negative - Urine glucose: 2+ - Hemoglobin A1c: 9.1% Problem List - HIV-1 infection - Type 2 Diabetes Mellitus - - History of section Assessment & Plan Diagnosis / Problem List (1) Uterine size date discrepancy: Status: Acute (2) Supervision of high risk , unspecified, first trimester: Status: Acute (3) Morbid obesity with BMI of 45.0-49.9, adult: Status: Acute (4) Type 2 diabetes mellitus affecting in first trimester, antepartum: Status: Acute (5) HIV affecting , antepartum: Status: Acute Plan Problem List - HIV-1 infection - Type 2 Diabetes Mellitus - - History of section Assessment 27-week 6-day patient with HIV-1 positive status diagnosed in March of last year, currently on Trimac with need for viral load monitoring. Patient has poorly controlled type 2 diabetes mellitus with A1c of 9.1% despite insulin therapy (Basaglar and Admelog), with recent non-compliance due to illness and 2+ glucose in urine. History of two prior deliveries. Current at 11 weeks 1 day gestation based on March 07 ultrasound, with completed initial screening showing hepatitis B surface antigen negative, hepatitis C negative, RPR non-reactive, rubella immune, blood group B positive with negative antibody screen, and negative gonorrhea and chlamydia testing. Plan - HIV monitoring: New lab panel to monitor viral counts; if numbers are high, additional medications will be added and repeated at 37 weeks - Genetic testing today for Down Syndrome and chromosomal abnormalities, including gender determination - NIPT test needed - Diabetes management: If needed, hospital admission to control sugar levels; possible transfer to [place] for delivery in 3rd trimester due to diabetes requiring pediatric medical authorization specialist - Referral to Dr. Garcia, maternal- high-risk specialist - Additional testing for HIV today - HIV panel code [id number], consent needed for HIV testing - Lab orders provided - Anatomy scan at 18 weeks - Follow-up in 2 weeks for lab results
== END 2025-04-06 09:24 | disposition home or self-care (01) ==
LOC: HODSOBC 08:32
PROVIDERS: Supervising Provider Obstetrics & Gynecology; Visit Provider Obstetrics & Gynecology
DX: O09.891 Supervision of other high risk pregnancies, first trimester (principal); O26.841 Uterine size-date discrepancy, first trimester; O99.211 Obesity complicating pregnancy, first trimester; E66.01 Morbid (severe) obesity due to excess calories; O24.111 Pre-existing type 2 diabetes mellitus, in pregnancy, first trimester; E11.65 Type 2 diabetes mellitus with hyperglycemia; Z3A.11 11 weeks gestation of pregnancy; O98.711 Human immunodeficiency virus [HIV] disease complicating pregnancy, first trimester; Z21 Asymptomatic human immunodeficiency virus [HIV] infection status; O09.291 Supervision of pregnancy with other poor reproductive or obstetric history, first trimester; O34.219 Maternal care for unspecified type scar from previous cesarean delivery; Z79.4 Long term (current) use of insulin; Z79.899 Other long term (current) drug therapy
CPT/HCPCS: 99214; G0463

== ENCOUNTER 2025-04-18 08:23 | Outpatient (AMB) | payer MEDICAID, SELFPAY ==
[2025-04-18 08:31] VITALS: BP 105/67; PULSE 81; RESP 16; TEMP 36.6; O2SAT 97; BMI 47.7
--- NOTE | 2025-04-18 08:31 | OBCLNT_ITS ---
Vital Signs 04/18/25 08:31 Height 1.6 m Height Method Stated Weight 122.243 kg Weight Measurement Method Standing Scale BMI 47.7 BP 105/67 Blood Pressure Source Automatic Cuff Blood Pressure Location Left Upper Arm Position Sitting Respiration 16 Pulse 81 Pulse Source Monitor Temp 97.8 F Temp Source Oral Pulse Oximetry (%) 97 Oxygen Delivery Method Room Air Allergies/Home Meds Allergies & Medications Allergies No Known Allergies Allergy (Verified 04/18/25 08:32) Medication Reconciliation blood-glucose sensor (FreeStyle Yamini 3 Sensor device) #1 ea 10/12/23 [Rx Confirmed 04/18/25] pen needle, diabetic 29 gauge x 1/2 (Pen Needle) #100 ea 10/12/23 [Rx Confirmed 04/18/25] blood-glucose sensor (FreeStyle Yamini 3 Sensor device) #1 ea 11/09/23 [Rx Confirmed 04/18/25] blood-glucose,wrecker operator,cont (FreeStyle Yamini 3 [place]) #1 ea 11/09/23 [Rx Confirmed 04/18/25] blood sugar diagnostic (Blood Glucose Test strips) #100 ea 03/05/25 [Rx Confirmed 04/18/25] blood-glucose meter #1 ea 03/05/25 [Rx Confirmed 04/18/25] lancets 21 gauge #100 ea 03/05/25 [Rx Confirmed 04/18/25] ondansetron 4 mg disintegrating tablet 4 mg PO Q6H PRN nausea and vomiting 30 days #120 tabs 03/22/25 [Rx Confirmed 04/18/25] insulin glargine 100 unit/mL (3 mL) subcutaneous pen (Lantus Solostar U-100 Insulin) 50 unit (0.5 mL) subcut QPM 30 days #15 mL 04/06/25 [Rx Confirmed 04/18/25] insulin lispro 100 unit/mL subcutaneous pen (Humalog KwikPen (U-100) Insulin) 15 unit (0.15 mL) subcut TID 30 days #13.5 mL 04/06/25 [Rx Confirmed 04/18/25] pen needle, diabetic 29 gauge x 1/2 #100 ea 04/06/25 [Rx Confirmed 04/18/25] Intake Visit Data Collection New Patient or Established: Established Patient (seen at [facility] within 3 years) Reason for Visit:: CARE Seen by Clinical Staff ONLY (RN/MA): No Vibration Technician Required: No Do You Feel Safe at Home: Yes Authorities Contacted: N/A PCP or OBGYN visit in last 3 months: Yes Hx Now: Yes Are you currently on any form of Control: No Pain Present Currently: No Pain Scale Used: Roberto-Garrett/Numerical Pain scale:: 0 Smoking Status Smoking Status: Never smoker Questionnaires Covid-19 Vaccine Questionnaire Has patient been vacinated for Covid-19 Have you been vacinated for Covid-19: Yes PHQ-9 PHQ-2 Over the last 2 weeks, how often have you been bothered by any of the following problems? 1. Little interest or pleasure in doing things: not at all 2. Feeling down, depressed, or hopeless: not at all Total score: 0 PHQ-9 3. Trouble falling or staying asleep, or sleeping too much: Not at all 4. Feeling tired or having little energy: Not at all 5. Poor appetite or overeating: Not at all 6. Feeling bad about yourself - or that you are a failure or have let yourself or your family down: Not at all 7. Trouble concentrating on things, such as reading the newspaper or watching television: Not at all 8. Moving or speaking so slowly that other people could have noticed? - Or the opposite - being so fidgety or restless that you have been moving around a lot more than usual: not at all 9. Thoughts that you would be better off or of hurting yourself in some way: Not at all Total score: 0 Source: Developed by Drs. Matthew Walker, Brielle Menezes, Kevan Gardner and colleagues, with an educational arturo from [employer]. 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 Medical History Past Medical History: No Hx Neurological Disorders, No Hx Breast Cancer, No Hx Cardiac Disorders, No Hx Cancer, No Hx Blood Disorders, Yes Hx Gastrointestinal Disorders, No Hx Renal Disease, No Hx Diabetes Mellitus Type 1 and Yes Hx Diabetes Mellitus Type 2 Care OB Visit Log OB Flowsheet Initial Weight: Not Recorded Date -?-?-?-?-?-?-?-?-?-?-?-?- EGA Weight BP Alb Glu CTX Pres Fundal ht FHR Mov Dilation Station Effacement Hx Notes Visit Note 03/05/25 -?-?-?-?-?--?-?-?-?-?-?-?- 6w 4d 124.738 kg 106/71 absent unknown 24 - Schedule formal ultrasound - Order labs - Review ultrasound and lab results once available to determine further management - Continue Humalog 40 units - Provide glucose meter - Instruct patient to check blood sugar four times daily: fasting and 1 hour after each meal - Review blood sugar readings at next vi sit before making any insulin dosage adjustments 04/18/25 -?-?-?-?-?-?-?-?-?-?-?-?- 12w 6d 122.243 kg 105/67 absent unknown 165 - Laurie Corbett is a 3 para 2 female at 12 weeks and 6 days gestation presenting for her second visit with poorly controlled type 2 diabetes mellitus and known HIV. - She reports improvement in her diabete s control since the start of . - Her hemoglobin A1c has decreased fro m 9.2 at the start of to 8.0 currently. - She is checking her blood sugars but r eports inconsistent monitoring. - Post-meal blood sugars have reached as high as 190 mg/dL, which she describes as typical for her current levels. - She continues her current diabetes man agement regimen including insulin. - Recent labs were drawn 2 days ago but results are still pending. - She is awaiting results to determine i f any adjustments to her HIV medications are needed. - First-trimeste r detailed ultrasound survey: - Clinical gestational age: 12 weeks 5 days, corresponding to due date of 10/25/2025 - [place]-rump length: 13 weeks 3 days ( consistent with established due date of 10/25/2025) - Early anatomy survey: within normal limits - Nuchal translucency and nasal bone: visualized - Placenta: anterior-right lateral pos ition - No sonographic evidence of placenta accreta spectrum CHEKO Calculator Estimated Delivery Date Method Current WG Current Estimate 10/25/25 Ultrasound #1 13w 0d Other Estimates 06/30/25 LMP (Uncertain) 29w 5d Office Procedures [facility] LOC & Office Proc's Nursing/Assessment Patient Status: Established Patient OB Clinic Nursing Assessment: Medication Reconciliation, Update PMH in EMR and Vital Signs OB Clinic Coordination of Care: Complex Care and Chronic Disease 1-5, Consent,records obtained, informed consent, Education Simp Pt/Fam, 1 Ins Authorization, Lab and Imaging orders, Results/Orders obtained and Staff clarify orders Special Needs: Heart tones Established Patient Charge Established Patient Point Assignment: 150 Established Patient Point Charge: EP Level 4 (120-155) Assessment & Plan Diagnosis / Problem List (1) HIV affecting , antepartum: Status: Acute (2) Type 2 diabetes mellitus affecting in first trimester, antepartum: Status: Acute (3) Uterine size date discrepancy: Status: Acute (4) Supervision of high risk , unspecified, first trimester: Status: Acute (5) Morbid obesity with BMI of 45.0-49.9, adult: Status: Acute Plan Problem List - Type 2 Diabetes Mellitus - Human Immunodeficiency Virus (HIV) - Assessment 3 para 2 at 12 weeks and 6 days gestation, with poorly controlled type 2 diabetes mellitus (HbA1c improved from 9.2% to 8% since onset). Patient has known HIV. First-trimester detailed survey showed clinical gestational age of 12 weeks and 5 days, corresponding to a due date of 10/25/2025. [place]-rump length consistent at 13 weeks and 3 days. Early anatomy survey, including nuchal translucency and nasal bone, appeared within normal limits. Placenta visualized as anterior-right lateral, with no sonographic evidence of placenta accreta spectrum. Recent blood glucose readings range from 120-130 mg/dL fasting and up to 190 mg/dL postprandial. Recent lab results are pending. Plan - Continue current diabetes management and insulin regimen - Await pending lab results, including viral load and CD4 count - Provider to call patient on Wednesday with lab results and potential medication adjustments - Follow-up appointment scheduled in 4 weeks - Provider to make lab results available to patient, including sex information This format is not applicable as the patient is at 12 weeks and 6 days ge stational age, which is less than 20 weeks.
== END 2025-04-18 09:15 | disposition home or self-care (01) ==
PROVIDERS: Supervising Provider Obstetrics & Gynecology; Visit Provider Obstetrics & Gynecology
DX: O09.891 Supervision of other high risk pregnancies, first trimester (principal); O26.841 Uterine size-date discrepancy, first trimester; O99.211 Obesity complicating pregnancy, first trimester; E66.01 Morbid (severe) obesity due to excess calories; O24.111 Pre-existing type 2 diabetes mellitus, in pregnancy, first trimester; E11.65 Type 2 diabetes mellitus with hyperglycemia; O98.711 Human immunodeficiency virus [HIV] disease complicating pregnancy, first trimester; Z3A.12 12 weeks gestation of pregnancy; Z21 Asymptomatic human immunodeficiency virus [HIV] infection status; Z79.4 Long term (current) use of insulin
CPT/HCPCS: 99214; G0463

== ENCOUNTER 2025-05-22 08:32 | Outpatient (AMB) | payer MEDICAID, SELFPAY ==
--- NOTE | 2025-05-22 08:45 | AMB.OBVISIT ---
Vital Signs 05/22/25 08:49 Height 1.6 m Height Method Stated Weight 125.362 kg Weight Measurement Method Standing Scale BMI 48.9 BP 110/71 Blood Pressure Source Automatic Cuff Blood Pressure Location Left Upper Arm Position Sitting Respiration 16 Pulse 86 Pulse Source Monitor Temp 97.8 F Temp Source Oral Pulse Oximetry (%) 96 Oxygen Delivery Method Room Air Allergies/Home Meds Allergies & Medications Allergies No Known Allergies Allergy (Verified 07/16/25 11:23) Medication Reconciliation blood-glucose sensor (FreeStyle Yamini 3 Sensor device) #1 ea 10/12/23 [Rx Confirmed 07/16/25] pen needle, diabetic 29 gauge x 1/2 (Pen Needle) #100 ea 10/12/23 [Rx Confirmed 07/16/25] blood-glucose sensor (FreeStyle Yamini 3 Sensor device) #1 ea 11/09/23 [Rx Confirmed 07/16/25] blood-glucose,irrigation foreman,cont (FreeStyle Yamini 3 [place]) #1 ea 11/09/23 [Rx Confirmed 07/16/25] blood sugar diagnostic (Blood Glucose Test strips) #100 ea 03/05/25 [Rx Confirmed 07/16/25] blood-glucose meter #1 ea 03/05/25 [Rx Confirmed 07/16/25] lancets 21 gauge #100 ea 03/05/25 [Rx Confirmed 07/16/25] insulin lispro 100 unit/mL subcutaneous pen (Humalog KwikPen (U-100) Insulin) 15 unit (0.15 mL) subcut TID 30 days #13.5 mL 04/06/25 [Rx Confirmed 07/16/25] pen needle, diabetic 29 gauge x 1/2 #100 ea 04/06/25 [Rx Confirmed 07/16/25] insulin glargine 100 unit/mL (3 mL) subcutaneous pen (Lantus Solostar U-100 Insulin) 50 unit (0.5 mL) subcut QPM 30 days #15 mL 06/15/25 [Rx Confirmed 07/16/25] sulfamethoxazole 800 mg-trimethoprim 160 mg tablet (Bactrim DS) 1 tab PO BID #14 tabs 06/19/25 [Rx Confirmed 07/16/25] abacavir 600 mg-dolutegravir 50 mg-lamivudine 300 mg tablet (Triumeq) tab 07/01/25 [History Confirmed 07/16/25] Intake Visit Data Collection New Patient or Established: Established Patient (seen at [facility] within 3 years) Reason for Visit:: CARE Seen by Clinical Staff ONLY (RN/MA): No Pellet Press Operator Required: No Do You Feel Safe at Home: Yes Authorities Contacted: N/A PCP or OBGYN visit in last 3 months: Yes Hx Now: Yes Are you currently on any form of Control: No Pain Present Currently: No Pain Scale Used: Roberto-Garrett/Numerical Pain scale:: 0 Smoking Status Smoking Status: Never smoker Immunizations Flu Vaccine in the Last 12 Months: Yes Flu Vaccine Exclusion Criteria: Already Received Questionnaires Covid-19 Vaccine Questionnaire Has patient been vacinated for Covid-19 Have you been vacinated for Covid-19: Yes PHQ-9 PHQ-2 Over the last 2 weeks, how often have you been bothered by any of the following problems? 1. Little interest or pleasure in doing things: not at all 2. Feeling down, depressed, or hopeless: not at all Total score: 0 PHQ-9 3. Trouble falling or staying asleep, or sleeping too much: Not at all 4. Feeling tired or having little energy: Not at all 5. Poor appetite or overeating: Not at all 6. Feeling bad about yourself - or that you are a failure or have let yourself or your family down: Not at all 7. Trouble concentrating on things, such as reading the newspaper or watching television: Not at all 8. Moving or speaking so slowly that other people could have noticed? - Or the opposite - being so fidgety or restless that you have been moving around a lot more than usual: not at all 9. Thoughts that you would be better off or of hurting yourself in some way: Not at all Total score: 0 Source: Developed by Drs. Matthew Walker, Brielle Menezes, Kevan Gardner and colleagues, with an educational arturo from [employer]. 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: Past Medical History Past Medical History: No Hx Neurological Disorders, No Hx Breast Cancer, No Hx Cardiac Disorders, No Hx Cancer, No Hx Blood Disorders, Yes Hx Gastrointestinal Disorders, No Hx Renal Disease, No Hx Diabetes Mellitus Type 1 and Yes Hx Diabetes Mellitus Type 2 Care OB Visit Log OB Flowsheet Initial Weight: Not Recorded Date <del>?</del> EGA Weight BP Alb Glu CTX Pres Fundal ht FHR Mov Dilation Station Effacement Hx Notes Visit Note 03/05/25 <del>?</del> 6w 4d 124.738 kg 106/71 absent unknown 24 - Schedule formal ultrasound - Order labs - Review ultrasound and lab results once available to determine further management - Continue Humalog 40 units - Provide glucose meter - Instruct patient to check blood sugar four times daily: fasting and 1 hour after each meal - Review blood sugar readings at next visit before making any insulin dosage adjustments 04/06/25 <del>?</del> 11w 1d 123.15 kg 107/67 absent unknown - Laurie Corbett is a 3, para 2 female at 27 weeks and 6 days gestation with a history of 2 C-sections, type 2 diabetes mellitus on insulin, and HIV-1 positive status here for routine care. - She was diagnosed with HIV in March of last year with testing done in [place]. - She is currently on Trimac for HIV treatment. - Regarding her diabetes management, she takes 40 units of insulin but reports not taking it due to sickness. - She is currently taking Basaglar and Admelog in pen form. - She denies gonorrhea and chlamydia. Plan - HIV monitoring: New lab panel to monitor viral counts; if numbers are high, additional medications will be added and repeated at 37 weeks - Genetic testing today for Down Syndrome and chromosomal abnormalities, including gender determination - NIPT test needed - Diabetes management: If needed, hospital admission to control sugar levels; possible transfer to [place] for delivery in 3rd trimester due to diabetes requiring pediatric cardiac care nurse - Referral to Dr. Garcia, maternal- high-risk specialist - Additional testing for HIV today - HIV panel code [id number], consent needed for HIV testing - Lab orders provided - Anatomy scan at 18 weeks - Follow-up in 2 weeks for lab results 04/18/25 <del>?</del> 12w 6d 122.243 kg 105/67 absent unknown 165 - Laurie Corbett is a 3 para 2 female at 12 weeks and 6 days gestation presenting for her second visit with poorly controlled type 2 diabetes mellitus and known HIV. - She reports improvement in her diabetes control since the start of . - Her hemoglobin A1c has decreased from 9.2 at the start of to 8.0 currently. - She is checking her blood sugars but reports inconsistent monitoring. - Post-meal blood sugars have reached as high as 190 mg/dL, which she describes as typical for her current levels. - She continues her current diabetes management regimen including insulin. - Recent labs were drawn 2 days ago but results are still pending. - She is awaiting results to determine if any adjustments to her HIV medications are needed. - First-trimester detailed ultrasound survey: - Clinical gestational age: 12 weeks 5 days, corresponding to due date of 10/25/2025 - [place]-rump length: 13 weeks 3 days (consistent with established due date of 10/25/2025) - Early anatomy survey: within normal limits - Nuchal translucency and nasal bone: visualized - Placenta: anterior-right lateral position - No sonographic evidence of placenta accreta spectrum 05/22/25 <del>?</del> 17w 5d 125.362 kg 110/71 absent unknown 155 - The estimated due date (CHEKO) is consistent with establised CHEKO from early ultrasound. - The Maternal- Medicine (MfM) specialist has highlighted HIV management based on CD4 and viral counts. - Order test [id number] with CD4 count - Keep next MFM appt - Follow up in 4 weeks 07/16/25 <del>?</del> 25w 4d 120.826 kg 114/73 absent unknown 155 - Laurie Corbett is a female with a history of diabetes, HIV diagnosis, and multiple miscarriages here for routine follow-up. - She reports recent ultrasound with Dr. Woodward showed overall good results with specific recommendations and guidelines provided. - Patient reports baby is active. - She denies leaking, bleeding, or cramping. - Blood sugar monitoring has been inconsistent as she is not checking daily as recommended. - She received a call from infectious disease specialist Dr. Zamudio regarding HIV management and has an upcoming appointment scheduled. - Patient has not yet started HIV medications but understands need to begin by 28 weeks gestation. - HIV management: Follow up with infectious disease specialist Dr. Zamudio, must be on HIV medications by 28 weeks gestation - Diabetes management: Check blood glucose daily (fasting in morning and 1 hour post-meal x3), bring glucose logs to next appointment for insulin adjustment as needed - Delivery planning: Goal delivery at 37 weeks due to diabetes, earlier if blood pressure elevates - Follow up in 4 weeks CHEKO Calculator Estimated Delivery Date Method Current WG Current Estimate 10/25/25 Ultrasound #1 28w 5d Other Estimates 06/30/25 LMP (Uncertain) 45w 3d Notes Visit Date: 07/16/25 Last Updated by: Abraham Mauro MD - Ultrasound with [facility] on 06/12/2025: Single living fetus at 20 weeks 5 days, LGA fetus, composite age 21 weeks 3 days, AFW and AC above 99th percentile, normal amniotic fluid, limited anatomy, right lateral placenta, no previa, cervix 4.14 cm, no funneling, breech presentation - Echo: Normal segmental intracardiac anatomy, normal valve, chamber dimensions - Ultrasound with Dr. Rosales: Overall good results - heart rate: 155 bpm (normal) Visit Date: 04/06/25 Last Updated by: Abraham Mauro MD Laboratory, Imaging, and Diagnostic Test Results - Ultrasound (March 07): Gestational age 11 weeks and 1 day - Initial screen ([facility]): - Hepatitis B surface antigen: Negative - Hepatitis C: Negative - RPR: Non-reactive - Rubella: Immune - Blood group: B positive - Antibody screen: Negative - HIV-1 antibody: Positive - Gonorrhea: Negative - Chlamydia: Negative - Urine glucose: 2+ - Hemoglobin A1c: 9.1% Problem List - HIV-1 infection - Type 2 Diabetes Mellitus - - History of section Office Procedures [facility] Clinic LOC & Office Proc's Nursing/Assessment Patient Status: Established Patient OB Clinic Nursing Assessment: Medication Reconciliation, Update PMH in EMR and Vital Signs OB Clinic Coordination of Care: Complex Care and Chronic Disease 1-5, Consent,records obtained, informed consent, Education Simp Pt/Fam, Lab and Imaging orders, Results/Orders obtained and Staff clarify orders Special Needs: Heart tones Established Patient Charge Established Patient Point Assignment: 135 Established Patient Point Charge: EP Level 4 (120-155) Assessment & Plan Diagnosis / Problem List (1) HIV affecting , antepartum: Status: Acute (2) Type 2 diabetes mellitus affecting in first trimester, antepartum: Status: Acute Plan Problem List - HIV infection - Plan - Order test [id number] with CD4 count - Keep next [facility] appt - Follow up in 4 weeks
[2025-05-22 08:49] VITALS: BP 110/71; PULSE 86; RESP 16; TEMP 36.6; O2SAT 96; BMI 48.9
== END 2025-05-22 09:11 | disposition home or self-care (01) ==
LOC: HODSOBC 08:32
PROVIDERS: Supervising Provider Obstetrics & Gynecology; Visit Provider Obstetrics & Gynecology
DX: O09.892 Supervision of other high risk pregnancies, second trimester (principal); O24.112 Pre-existing type 2 diabetes mellitus, in pregnancy, second trimester; O98.712 Human immunodeficiency virus [HIV] disease complicating pregnancy, second trimester; Z21 Asymptomatic human immunodeficiency virus [HIV] infection status; Z3A.17 17 weeks gestation of pregnancy
CPT/HCPCS: 99214; G0463

== ENCOUNTER 2025-06-19 16:18 | Emergency (ER) | payer MEDICAID, SELFPAY ==
[2025-06-19 16:58] VITALS: BP 123/77; PULSE 90; RESP 18; TEMP 36.9; O2SAT 98; BMI 47.2
[2025-06-19] MEDS: LIDOCAINE HCL 1% 20 ML VIAL INFL (17:16)
--- NOTE | 2025-06-19 17:40 | EDNOTE_ITS ---
ED Skin Abcess FB-RME/HPI General Chief complaint: Skin/Abscess/Foreign Body Stated complaint: ABSCESS Time Seen by Provider: 06/19/25 16:48 Source: patient Arrival date/time: 06/19/25 16:18 35-year-old female with no known medical history presents to the emergency room with a chief complaint of an abscess to her right rib cage x 4 days Mode of arrival: ambulatory Limitations: no limitations Related Data Previous Rx's ?Medication ?Instructions ?Recorded blood-glucose sensor (FreeStyle #1 ea 10/12/23 Yamini 3 Sensor device) pen needle, diabetic 29 gauge x #100 ea 10/12/23 1/2 (Pen Needle) blood-glucose sensor (FreeStyle #1 ea 11/09/23 Yamini 3 Sensor device) blood-glucose,bicycle subassembler,cont #1 ea 11/09/23 (FreeStyle Yamini 3 [place]) blood sugar diagnostic (Blood #100 ea 03/05/25 Glucose Test strips) blood-glucose meter #1 ea 03/05/25 lancets 21 gauge #100 ea 03/05/25 insulin lispro 100 unit/mL 15 unit (0.15 mL) subcut TI D 30 04/06/25 subcutaneous pen (Humalog KwikPen days #13.5 mL (U-100) Insulin) pen needle, diabetic 29 gauge x #100 ea 04/06/25/ insulin glargine 100 unit/mL (3 50 unit (0.5 mL) subcu t QPM 30 06/15/25 mL) subcutaneous pen (Lantus days #15 mL Solostar U-100 Insulin) sulfamethoxazole 800 1 tab PO BID #14 tabs mg-trimethoprim 160 mg tablet (Bactrim DS) Allergies Allergy/AdvReac Type Severity Reaction Status Date / Time No Known Allergies Allergy Verified 05/22/25 08:50 Review of Systems Review of Systems Systems Reviewed: All systems reviewed, normal except as documented Constitutional Constitutional: Reports system reviewed and no additional complaints, except as documented, Denies fatigue, Denies fever(s), Denies headache(s) and Denies weakness Eyes Eyes: Reports system reviewed and no additional complaints, except as documented, Denies blurry vision and Denies change in vision ENT Ears, Nose, Mouth, and Throat: Reports system reviewed and no additional complaints, except as documented, Denies otalgia, Denies headache(s), Denies nasal congestion, Denies throat swelling and Denies vertigo Cardiovascular Cardiovascular: Reports system reviewed and no additional complaints, except as documented, Denies chest pain, Denies dyspnea and Denies dyspnea on exertion Respiratory Respiratory: Reports system reviewed and no additional complaints, except as documented, Denies chest congestion, Denies cough, Denies dyspnea, Denies dyspnea on exertion and Denies wheezing Gastrointestinal Gastrointestinal: Reports system reviewed and no additional complaints, except as documented, Denies abdominal pain, Denies cramping, Denies nausea and Denies vomiting Genitourinary Genitourinary: Reports system reviewed and no additional complaints, except as documented Musculoskeletal Musculoskeletal: Reports system reviewed and no additional complaints, except as documented and Denies back pain Integumentary/Breasts Skin/Breast: Reports system reviewed and no additional complaints, except as documented and Reports wounds Neurologic Neurologic: Reports system reviewed and no additional complaints, except as documented, Denies confusion, Denies headache(s), Denies lack of coordination, Denies vertigo and Denies weakness Psychiatric Psychiatric: Reports system reviewed and no additional complaints, except as documented, Denies anxiety, Denies confusion, Denies depression, Denies paranoia, Denies suicidal ideation and Denies tactile hallucinations Endocrine Endocrine: Reports system reviewed and no additional complaints, except as documented and Denies fatigue Hematologic/Lymphatic Hematologic/Lymphatic: Reports system reviewed and no additional complaints, except as documented and Denies lymphadenopathy Allergic/Immunologic Allergic/Immunologic: Reports system reviewed and no additional complaints, except as documented, Denies throat swelling, Denies urticaria and Denies wheezing Past Medical History Past Medical History NEUROLOGIC: Negative Neurological Disorders or Seizures CARDIAC: Negative Cardiac Disorders, Angina, Aneurysm or Congestive Heart Failure RESPIRATORY: Negative Chronic Obstructive Pulmonary Disease (COPD) or Asthma GASTROINTESTINAL: Positive Gastrointestinal Disorders and Obesity; Negative Hepatitis or Colorectal Cancer GENITOURINARY: Negative Genitourinary Disorders, Renal Disease or Prostate Cancer REPRODUCTIVE: Positive Previous Pregnancies; Negative Breast Cancer, Endometriosis, Pelvic Inflammatory Disease, Testicular Cancer or Uterine Prolapse MUSCULOSKELETAL: Negative Musculoskeletal Disorders or Bone Cancer ENDOCRINE: Positive Endocrine Disorders and Diabetes Mellitus Type 2; Negative Diabetes Mellitus Type 1 HEMATOLOGIC: Negative Blood Disorders or Sickle Cell Disease OTHER HISTORY: Positive Chicken Pox; Negative Hospitalization, Autoimmune Disease, Down Syndrome, Developmental Delay, Shingles, Falls, Blood Transfusions, Blood Transfusion Reaction, Anesthesia Reactions, Organ Transplant, Chemotherapy, Radiation Therapy, Hyperbaric Therapy, MRSA, VRSA, Vancomycin-Resistant Enterococci, Human Immunodeficiency Virus (HIV), Measles, Mumps, Rubella (Hungarian Measles), Pertussis, Clostridium Difficile, Cancer, Breast Cancer, Cervical Cancer, Colorectal Cancer, Lung Cancer, Ovarian Cancer, Prostate Cancer or Testicular Cancer Family History FAMILY HISTORY: Negative Family Psychiatric Problems, Family Respiratory Disorders, Family Cardiac Disorders, Family Gastrointestinal Problems, Family Cancer, Family Surgery or Family Anesthesia Reaction Surgical History SURGICAL: Positive Section; Negative Cardiac Surgery, Endocrine Surgery, Thyroidectomy, Ear Surgery, Abdominal Surgery, Nephrectomy, Joint Replacement, Neurologic Surgery, Mastectomy, Vasectomy or Organ Transplant Social History SMOKING STATUS: Never smoker SECOND HAND EXPOSURE: No SUBSTANCE USE: does not use ED Exam General Limitations: Present no limitations General appearance: Present alert and in no apparent distress Head Head exam: Present atraumatic Eye Eye exam: Present normal appearance, PERRL and EOMI ENT ENT exam: Present normal exam, normal oropharynx and mucous membranes moist Neck Neck exam: Present normal inspection, full ROM and trachea midline Chest Chest inspection: Present normal inspection and symmetric chest wall rise Respiratory Respiratory exam: Present normal lung sounds bilaterally Cardiovascular Cardiovascular exam: Present regular rate, normal rhythm and normal heart sounds Abdominal Exam Abdominal exam: Present soft and normal bowel sounds Extremities Exam Extremities exam: Present normal inspection and full ROM Back Exam Back exam: Present normal inspection and full ROM Neurological Exam Neurological exam: Present alert, oriented X3 and CN II-XII intact Psychiatric Psychiatric exam: Present normal affect and normal mood Skin Skin exam: Present warm, dry, intact and normal color Expanded Skin Exam Type of lesion: Present abscess Distribution: Present chest Description: Present tenderness, erythematous, swelling and discharge Body image: 2 1. Course Quality Measures none Orders Category Date Time Status Incision and Drainage Set Up X1 Care 06/19/25 17:05 Completed Set Up Suture Tray STAT Care 06/19/25 17:05 Completed Wound Care NOW Care 06/19/25 17:05 Completed Lidocaine 1% Vial 20 ml [Xylocaine 1% 20 ML] Med 06/19/25 17:05 Discontinued 20 ml INFL X1 ONE Vital Signs Vital signs: Vital Signs Temperature 98.4 F 06/19/25 16:58 Pulse Rate 90 06/19/25 16:58 Respiratory Rate 18 06/19/25 16:58 Blood Pressure 123/77 06/19/25 16:58 Pulse Oximetry (%) 98 06/19/25 16:58 Oxygen Delivery Method Room Air 06/19/25 16:58 PROCEDURES: Abscess I/D Site: chest Side (if applicable): right Local Anesthetic: lidocaine 1% Amount of anesthesia used (mL): 4 Technique: incised with #11 blade Amount of fluid expressed (mL): 5 Packing used?: iodoform Skin / Abscess / Foreign Body MDM Narrative MDM Narrative:: 35-year-old female with no known medical history presents to the emergency room with a chief complaint of an abscess to her right rib cage x 4 days Patient is hemodynamically stable and in no apparent distress Physical examination shows an abscess to the right rib cage has been going on for 4 days. Patient has a history of this abscess and states that she will have an I&D procedure and I will return months later. PROCEDURE: incision and drainage of abscess PROCEDURE: A timeout protocol was performed prior to initiating the procedure. The area was prepared with Betadine and draped in the usual, sterile manner. The site was anesthetized with 1% lidocaine. A linear incision along the local skin lines was made and the purulent material expressed. The abscess was explored thoroughly and sequestered pockets were opened. Bleeding was minimal. Packing: none Followup: The patient tolerated the procedure well without complications. Standard post-procedure care is explained and patient was educated to follow-up with his primary care provider in the next 24 to 48 hours or return to the emergency room for any evidence of worsening signs or symptoms. Patient data External records reviewed:: [facility] previous records Clinical information provided by:: patient Social determinants that could affect healthcare access:: none Patient has the following chronic illnesses:: No chronic illness How is presenting disease/condition affected by chronic disease/condition?: no chronic disease Evaluation data The following diagnostics were reviewed and interpreted by me:: lab results and radiology exam(s) Lab and/or radiology exams considered but not ordered:: Labs and radiology exams considered in Interpretation Summary: N/A Medications / Prescriptions Medications or Prescriptions considered but not ordered:: Medication given Medication administrations:: Medication Administration History Discontinued Medications Lidocaine HCl (Lidocaine Hcl 1% 20 Ml Vial) 20 ml INFL X1 ONE Stop: 06/19/25 17:06 Last Admin: 06/19/25 17:16 Dose: 20 ml Documented By: DL Medication given Consultations Consultation(s) initiated? (list below): No Diagnosis Skin/Abscess Differential Diagnosis: abscess of skin or subcutaneous tissue, cellulitis and contact dermatitis Most likely diagnosis given after review of the tests above:: Abscess of skin and subcutaneous tissue yeangelica Admission Indicated Admission indicated?: not indicated Admission Request Was there a request for admission?: No Disposition Plan Disposition Plan: Discharge Discharge Attestation Discharge Attestation: The patient and all family members were given an opportunity to ask questions and understood the discharge instructions. Discharge instructions specifically effects, indications for sooner follow up or return to the emergency department, and the expected course of current diagnosis. Patient condition: Stable Discharge Plan Plan Patient Disposition: HOME (Self Care) Discharge Disposition comment: Stable Prescriptions/Referrals Prescriptions/Med Rec: New sulfamethoxazole-trimethoprim [Bactrim DS] 800-160 mg tablet 1 tab PO BID Qty: 14 0RF No Action (DME) FreeStyle Yamini 3 [place] Misc See Rx Instructions .Route Qty: 1 2RF Rx Instructions: As directed (DME) FreeStyle Yamini 3 Sensor Device See Rx Instructions .Route Qty: 1 0RF Rx Instructions: As directed insulin lispro [Humalog KwikPen Insulin] 100 unit/mL insulin pen 15 unit subcut TID 30 Days Qty: 13.5 4RF (DME) pen needle, diabetic 29 gauge x 1/2 needle See Rx Instructions .ROUTE .MEDSUPPLY Qty: 100 2RF Rx Instructions: As directed, four times a day (DME) blood-glucose meter Kit See Rx Instructions .MEDSUPPLY Qty: 1 0RF Rx Instructions: As directed, 4 times a day (DME) Blood Glucose Test Strip See Rx Instructions .MEDSUPPLY Qty: 100 0RF Rx Instructions: As directed, 4 times a day (DME) lancets 21 gauge misc See Rx Instructions .MEDSUPPLY Qty: 100 0RF Rx Instructions: As directed, 4 times a day insulin glargine [Lantus Solostar U-100 Insulin] 100 unit/mL (3 mL) insulin pen 50 unit subcut QPM 30 Days Qty: 15 3RF (DME) FreeStyle Yamini 3 Sensor Device See Rx Instructions .Route Qty: 1 0RF Rx Instructions: As directed (DME) pen needle, diabetic [Pen Needle] 29 gauge x 1/2 needle See Rx Instructions .Route Qty: 100 0RF Rx Instructions: As directed Problem List Clinical Impression: Abscess of skin or subcutaneous tissue Patient/Caregiver Discharge Instructions Education Materials: ED Abscess, Incision And Drainage, ED Cellulitis Additional Instructions: Please follow-up with your primary care provider in the next 24 to 48 hours Antibiotics are sent to your pharmacy please pick it up and take it as indicated Please keep your wound clean and dry and change dressings twice a day or as needed For any evidence of worsening signs or symptoms return to emergency room immediately Print Language: Chinese Stand Alone Forms: Leslie Award Info., Work/School Release, Patient Portal Info Letter PA/INDUSTRIAL ENGINEERING PROFESSOR Supervising Physician PA/INDUSTRIAL ENGINEERING PROFESSOR Supervising Physician: Dr. Ferrell
== END 2025-06-19 18:34 | disposition home or self-care (01) ==
LOC: SERX 17:47
PROVIDERS: Emergency Provider Emergency Medicine; PCP Family Medicine
DX: L02.213 Cutaneous abscess of chest wall (principal)
CPT/HCPCS: 10060; 99281; J3490

== ENCOUNTER 2025-06-30 23:40 | Observation (INO) | payer MEDICAID, SELFPAY ==
[2025-06-30 23:51] VITALS: BP 141/77; PULSE 104; RESP 18; RESP 97; TEMP 36.7; O2SAT 97
[2025-06-30 23:52] VITALS: BP 141/77; PULSE 107
[2025-06-30 23:55] VITALS: PULSE 101; O2SAT 97
[2025-07-01] VITALS (16 sets, daily range): BP systolic 103–129; BP diastolic 53–71; PULSE 93–188; O2SAT 92–99; BMI 49.6
--- NOTE | 2025-07-01 00:15 | XR_ITS ---
Examination: Complete OB ultrasound greater than 14 weeks Date and time of exam: July 01, 2025, 0026 hours INDICATIONS: Abdominal trauma 2 hours ago with pelvic pain Findings: Viable intrauterine single fetus with single amniotic sac presentation variable Cardiac motion 164 bpm Placenta fundal grade 1 Umbilical cord insertion 3 vessel seen Amniotic fluid 12.3 cm Cervix 4.2 cm Ovaries obscured by bowel gas. Composite estimated gestational age based on BPD, head circumference, abdominal circumference, femur length is 24 weeks 2 days Estimated weight 715.7 g. Survey of intracranial anatomy, spinal anatomy, abdominal anatomy, four-chamber heart performed with no abnormalities identified. Impression: Viable intrauterine gestation in variable presentation Placenta fundal grade 1 no abruption.
[2025-07-01] MEDS: ACETAMINOPHEN 325 MG TABLET 650 MG PO (00:44)
--- NOTE | 2025-07-01 01:35 | PRELIM_ITS ---
Obstetric ultrasound. July 01, 2025 at 0026 hours Clinical history: Rule out abruption, status post abdominal trauma. Comparison: None. Findings: There is a gravid uterus with a live fetus in variable presentation of mean gestational age 24 weeks and 2 days (by biometry). cardiac activity is present at a heart rate of 164 beats per minute. The placenta is fundal in location, maturity grade I. There is no evidence of placenta previa or retroplacental hemorrhage. Amniotic fluid is adequate (PROMISE = 12.3 cm). Estimated weight is 715.7 grams+/- 106 grams. Estimated due date by ultrasound is 10/19/2025. The cervical length measures 4.2 cm. The internal os is closed. Both ovaries are not visualized due to patient's large body habitus. Impression: 1. Gravid uterus with a single live fetus in variable presentation of mean gestational age 24 weeks 2 days. 2. No evidence of placental abruption. 3. Other findings as described above. Suggest clinical correlation and follow up accordingly. Report Electronically Signed By: Jaime Welch 07/01/2025 1:35:23 AM [EST]
[2025-07-01 01:41] LABS: Basophils # (Auto) 0.1 Thou/mm3 (0.0-0.2); Basophils % (Auto) 1 % (0-2.5); Eosinophils # (Auto) 0.2 Thou/mm3 (0.0-0.5); Eosinophils % (Auto) 2 % (0-10); Hematocrit 33.9 % (36.0-46.0); Hemoglobin 11.6 g/dL (12.0-16.0); Immature Granulocytes Auto 0.08 Thou/mm3 (0.00-0.00); Lymphocytes # (Auto) 2.6 Thou/mm3 (1.0-4.8); Lymphocytes % (Auto) 24 % (10-50); Mean Corpuscular HGB Conc 34.2 g/dl (31.0-37.0); Mean Corpuscular Hemoglobin 29.1 pg (25.0-35.0); Mean Corpuscular Volume 85 fL (80-100); Monocytes # (Auto) 0.6 Thou/mm3 (0.0-0.8); Monocytes % (Auto) 6 % (0-12); Neutrophils # (Auto) 7.1 Thou/mm3 (1.8-7.7); Neutrophils % (Auto) 67 % (37-80); Nucleated Red Blood Cell # 0.00 Thou/mm3 (0.00-0.00); Nucleated Red Blood Cell % 0 /100 WBC (0); Platelet Count 307 Thou/mm3 (140-440); RDW Standard Deviation 39.0 fL (36.4-46.3); Red Blood Count 3.99 Miln/mm3 (4.00-5.20); White Blood Count 10.6 Thou/mm3 (3.6-11.0)
[2025-07-01 01:52] LABS: INR 1.0 (0.9-1.3); Partial Thromboplastin Time 25.5 Seconds (22.0-36.0); Prothrombin Time 10.3 Seconds (9.0-12.2)
== END 2025-07-01 02:12 | disposition home or self-care (01) ==
LOC: S4SX 23:42
PROVIDERS: Admitting Provider Obstetrics & Gynecology; Visit Provider Obstetrics & Gynecology
DX: O9A.212 Injury, poisoning and certain other consequences of external causes complicating pregnancy, second trimester (principal); S39.91XA Unspecified injury of abdomen, initial encounter; Z3A.24 24 weeks gestation of pregnancy; X58.XXXA Exposure to other specified factors, initial encounter
CPT/HCPCS: 36415; 59899; 76805; 85025; 85610; 85730; A9270

== ENCOUNTER 2025-07-16 10:54 | Outpatient (AMB) | payer MEDICAID, SELFPAY ==
[2025-07-16 11:11] VITALS: BP 114/73; PULSE 87; RESP 16; TEMP 36.6; O2SAT 97; BMI 47.2
--- NOTE | 2025-07-16 11:11 | OBCLNT_ITS ---
Vital Signs 07/16/25 11:11 Height 1.6 m Height Method Stated Weight 120.826 kg Weight Measurement Method Standing Scale BMI 47.2 BP 114/73 Blood Pressure Source Automatic Cuff Blood Pressure Location Left Upper Arm Position Sitting Respiration 16 Pulse 87 Pulse Source Monitor Temp 97.8 F Temp Source Oral Pulse Oximetry (%) 97 Oxygen Delivery Method Room Air Allergies/Home Meds Allergies & Medications Allergies No Known Allergies Allergy (Verified 07/16/25 11:23) Medication Reconciliation blood-glucose sensor (FreeStyle Yamini 3 Sensor device) #1 ea 10/12/23 [Rx Confirmed 07/16/25] pen needle, diabetic 29 gauge x 1/2 (Pen Needle) #100 ea 10/12/23 [Rx Confirmed 07/16/25] blood-glucose sensor (FreeStyle Yamini 3 Sensor device) #1 ea 11/09/23 [Rx Confirmed 07/16/25] blood-glucose,club former,cont (FreeStyle Yamini 3 [place]) #1 ea 11/09/23 [Rx Confirmed 07/16/25] blood sugar diagnostic (Blood Glucose Test strips) #100 ea 03/05/25 [Rx Confirmed 07/16/25] blood-glucose meter #1 ea 03/05/25 [Rx Confirmed 07/16/25] lancets 21 gauge #100 ea 03/05/25 [Rx Confirmed 07/16/25] insulin lispro 100 unit/mL subcutaneous pen (Humalog KwikPen (U-100) Insulin) 15 unit (0.15 mL) subcut TID 30 days #13.5 mL 04/06/25 [Rx Confirmed 07/16/25] pen needle, diabetic 29 gauge x 1/2 #100 ea 04/06/25 [Rx Confirmed 07/16/25] insulin glargine 100 unit/mL (3 mL) subcutaneous pen (Lantus Solostar U-100 I nsulin) 50 unit (0.5 mL) subcut QPM 30 days #15 mL 06/15/25 [Rx Confirmed 07/16/25] sulfamethoxazole 800 mg-trimethoprim 160 mg tablet (Bactrim DS) 1 tab PO BID #14 tabs 06/19/25 [Rx Confirmed 07/16/25] abacavir 600 mg-dolutegravir 50 mg-lamivudine 300 mg tablet (Triumeq) tab 07/01/25 [History Confirmed 07/16/25] Immunizations Immunizations Flu Vaccine in the Last 12 Months: Yes Date of most recent flu vaccination: 07/16/25 Flu Vaccine Exclusion Criteria: Already Received Care OB Visit Log OB Flowsheet Initial Weight: Not Recorded Date -?-?-?-?-?-?-?-?-?-?-?-?- EGA Weight BP Alb Glu CTX Pres Fundal ht FHR Mov Dilation Station Effacement Hx Notes Visit Note 03/05/25 -?-?-?-?-?-?-?-?-?-?-?-?- 6w 4d 124.738 kg 106/71 absent unknown 24 - Schedule formal ultrasound - Order labs - Review ultrasound and lab results once available to determine further management - Continue Humalog 40 units - Provide glucose meter - Instruct patient to check blood sugar four times daily: fasting and 1 hour after each meal - Review blood sugar readings at next vi sit before making any insulin dosage adjustments 04/06/25 -?-?-?-?-?-?-?-?-?-?-?-?- 11w 1d 123.15 kg 107/67 absent unknown - Laurie Corbett is a 3, para 2 female at 27 weeks and 6 days gestation with a history of 2 C-sections, type 2 diabetes mellitus on insulin, and HIV-1 positive status here for routine care. - She was diagnosed with HIV in of last year with testing done in [place]. - She is currently on Trimac for HIV carlos atment. - Regarding her diabetes management, she takes 40 units of insulin but reports not taking it due to sickness. - She is currently taking Basaglar and Admelog in pen form. - She denies gonorrhea and chlamydia. Plan - HIV monitoring: New lab panel to monit or viral counts; if numbers are high, additional medications will be added and repeated at 37 weeks - Genetic testing today for Down Syndrom e and chromosomal abnormalities, including gender determination - NIPT test needed - Diabetes management: If needed, hospit al admission to control sugar levels; possible transfer to [place] for delivery in 3rd trimester due to diabetes requiring pediatric financial retirement plan specialist - Referral to Dr. Garcia, maternal-fet al high-risk specialist - Additional testing for HIV today - HIV panel code [id number], consent needed for HIV testing - Lab orders provided - Anatomy scan at 18 weeks - Follow-up in 2 weeks for lab results 04/18/25 -?-?-?-?-?-?-?-?-?-?-?-?- 12w 6d 122.243 kg 105/67 absent unknown 165 - Laurie Corbett is a 3 para 2 female at 12 weeks and 6 days gestation presenting for her second visit with poorly controlled type 2 diabetes mellitus and known HIV. - She reports improvement in her diabete s control since the start of . - Her hemoglobin A1c has decreased fro m 9.2 at the start of to 8.0 currently. - She is checking her blood sugars but r eports inconsistent monitoring. - Post-meal blood sugars have reached as high as 190 mg/dL, which she describes as typical for her current levels. - She continues her current diabetes man agement regimen including insulin. - Recent labs were drawn 2 days ago but results are still pending. - She is awaiting results to determine i f any adjustments to her HIV medications are needed. - First-florinda zuniga detailed ultrasound survey: - Clinical gestational age: 12 weeks 5 days, corresponding to due date of 10/25/2025 - [place]-rump length: 13 weeks 3 days ( consistent with established due date of 10/25/2025) - Early anatomy survey: within normal limits - Nuchal translucency and nasal bone: visualized - Placenta: anterior-right lateral pos ition - No sonographic evidence of placenta accreta spectrum 07/16/25 -?-?-?-?-?-?-?-?-?-?-?-?- 25w 4d 120.826 kg 114/73 absent unknown 155 - Laurie Corbett is a female with a history of diabetes, HIV diagnosis, and multiple miscarriages here for routine follow-up. - She reports recent ultrasound with Dr. Woodward showed overall good results with specific recommendations and guidelines provided. - Patient reports baby is active. - She denies leaking, bleeding, or cramp ing. - Blood sugar monitoring has been incons istent as she is not checking daily as recommended. - She received a call from infectious di sease specialist Dr. Zamudio regarding HIV management and has an upcoming appointment scheduled. - Patient has not yet started HIV medica tions but understands need to begin by 28 weeks gestation. - HIV manage ment: Follow up with infectious disease specialist Dr. Zamudio, must be on HIV medications by 28 weeks gestation - Diabetes management: Check blood gluco se daily (fasting in morning and 1 hour post-meal x3), bring glucose logs to next appointment for insulin adjustment as needed - Delivery planning: Goal delivery at 37 weeks due to diabetes, earlier if blood pressure elevates - Follow up in 4 weeks CHEKO Calculator Estimated Delivery Date Method Current WG Current Estimate 10/25/25 Ultrasound #1 26w 0d Other Estimates 06/30/25 LMP (Uncertain) 42w 5d Notes Visit Date: 07/16/25 Last Updated by: Abraham Mauro MD - Ultrasound with [facility] on 06/12/2025: Single living fetus at 20 weeks 5 days, LGA fetus, composite age 21 weeks 3 days, AFW and AC above 99th percentile, normal amniotic fluid, limited anatomy, right lateral placenta, no previa, cervix 4.14 cm, no funneling, breech presentation - Echo: Normal segmental intracardiac anatomy, normal valve, chamber dimensions - Ultrasound with Dr. Rosales: Overall good results - heart rate: 155 bpm (normal) Visit Date: 04/06/25 Last Updated by: Abraham Mauro MD Laboratory, Imaging, and Diagnostic Test Results - Ultrasound (March 07): Gestational age 11 weeks and 1 day - Initial screen ([facility]): - Hepatitis B surface antigen: Negative - Hepatitis C: Negative - RPR: Non-reactive - Rubella: Immune - Blood group: B positive - Antibody screen: Negative - HIV-1 antibody: Positive - Gonorrhea: Negative - Chlamydia: Negative - Urine glucose: 2+ - Hemoglobin A1c: 9.1% Problem List - HIV-1 infection - Type 2 Diabetes Mellitus - - History of section Office Procedures [facility] Clinic LOC & Office Proc's Nursing/Assessment Patient Status: Established Patient OB Clinic Nursing Assessment: Medication Reconciliation, Update PMH in EMR and Vital Signs OB Clinic Coordination of Care: Complex Care and Chronic Disease 1-5, Consent,records obtained, informed consent, Education Simp Pt/Fam, 1 Ins Authorization, Lab and Imaging orders, Results/Orders obtained and Staff clarify orders Special Needs: Heart tones Established Patient Charge Established Patient Point Assignment: 150 Established Patient Point Charge: EP Level 4 (120-155) Injection/Vaccine Admin Admin 1st Vaccine: Yes Immunizations flu vac ts 2024-(6mos up)-PF 45 mcg(15mcg x3)/0.5 mL IM syringe Performing Provider: Abarham Mauro MD Performing Location: [facility] Administered by: Loly Alfaro MA on 07/17/25 13:18 Dose Route Admin Location Dispensed Lot Number Expiration Date Pack age NDC NDC Chief Petroleum Engineer 0.5 mL IM Right Deltoid 0.5 mL [id number] 01/22/26 [id number] Offline Media VIS Given Date VIS Provided VIS Publication Date 07/16/25 Single Vaccine 24 Eligibility Eligibility Date Funding Source Public Non-[facility] Assessment & Plan Diagnosis / Problem List (1) HIV affecting , antepartum: Status: Acute (2) Type 2 diabetes mellitus affecting in first trimester, antepartum: Status: Acute (3) Uterine size date discrepancy: Status: Acute Plan Problem List - HIV infection - Diabetes mellitus in - Assessment Patient is a female with HIV diagnosis requiring infectious disease consultation and antiviral therapy initiation by 28 weeks gestation. She has gestational diabetes with suboptimal glucose monitoring compliance, requiring daily blood sugar checks including fasting and postprandial measurements to guide insulin management. Current is progressing appropriately with normal heart rate of 155 bpm, active movement, and absence of concerning symptoms including bleeding, leaking, or cramping. Ultrasound from [facility] on 06/12/2025 showed single living fetus at 20 weeks 5 days gestation, with accelerated growth (LGA fetus), composite age of 21 weeks 3 days, AFW above 99th percentile, AC above 99th percentile, normal amniotic fluid, limited anatomy evaluation due to maternal body habitus. Placenta right lateral with no previa, cervix 4.14 cm with no funneling, breech presentation. echo shows normal segmental intracardiac anatomy, TANNER ROTARY DRUM CONTINUOUS PROCESS not visualized, valve normal, chamber dimensions grossly normal. Recent ultrasound with Dr. Woodward showed overall good findings. Patient has obstetric history significant for multiple miscarriages and previous fertility treatment with Clomid, with one fallopian tube surgically removed, and has two living children. Delivery is planned at 37 weeks due to diabetes complications. Plan - HIV management: Follow up with infectious disease specialist Dr. Zamudio, must be on HIV medications by 28 weeks gestation - Diabetes management: Check blood glucose daily (fasting in morning and 1 hour post-meal x3), bring glucose logs to next appointment for insulin adjustment as needed - Delivery planning: Goal delivery at 37 weeks due to diabetes, earlier if blood pressure elevates - Follow up in 4 weeks 1. Progress Reviewed gestational age, growth, and heart rate (155 - normal heart rate noted). Planned frequent visits (scheduled for 4 weeks). 2. Instructed patient to monitor movements and report decreases immediately. 3. Testing Counseled on routine third-trimester labs per guidelines. Discussed potential need for ultrasound or monitoring based on risk factors. 4. Preeclampsia Precaution Educated on preeclampsia signs: severe headache, vision changes, right upper quadrant pain, sudden swelling. Advised urgent reporting of symptoms and discussed blood pressure monitoring if high risk (mentioned that if blood pressure goes up, delivery may be even sooner than 37 weeks). 5. Labor Precautions Reviewed labor signs: regular contractions, pelvic pressure, back pain, bleeding, or fluid leakage (patient denied leaking, bleeding, or cramping). Instructed to seek immediate care for these symptoms. 6. Lifestyle and Delivery Preparation Reinforced vitamins, nutrition, and safe activity. Discussed plan, pain management, and . Advised on labor preparation (e.g., hospital bag) and expectations (delivery goal set at 37 weeks due to diabetes). 7. Psychosocial Support Assessed emotional well-being and offered resources for mental health or parenting support.
== END 2025-07-16 11:47 | disposition home or self-care (01) ==
LOC: HODSOBC 10:54
PROVIDERS: Supervising Provider Obstetrics & Gynecology; Visit Provider Obstetrics & Gynecology
DX: O09.892 Supervision of other high risk pregnancies, second trimester (principal); O26.842 Uterine size-date discrepancy, second trimester; O24.112 Pre-existing type 2 diabetes mellitus, in pregnancy, second trimester; O09.292 Supervision of pregnancy with other poor reproductive or obstetric history, second trimester; O26.22 Pregnancy care for patient with recurrent pregnancy loss, second trimester; O98.712 Human immunodeficiency virus [HIV] disease complicating pregnancy, second trimester; O36.62X0 Maternal care for excessive fetal growth, second trimester, not applicable or unspecified; Z21 Asymptomatic human immunodeficiency virus [HIV] infection status; Z3A.25 25 weeks gestation of pregnancy; Z23 Encounter for immunization; Z79.4 Long term (current) use of insulin
CPT/HCPCS: 90471; 90686; 99214; G0463; J9060